=== PATIENT | male | born 1935 | race Caucasian/White ===

== ENCOUNTER 2018-03-20 06:25 | Inpatient (IN) | payer OTHER ==
[~2018-03-20] VITALS: Ht 177.8 cm; Wt 96.3 kg
[~2018-03-20 06:25] MED LIST: AMLODIPINE10 MG PO; ASPIR 8181 MG PO; BENAZEPRIL40 MG PO; ENDOCET 325 MG-1 TA1 PO; FLU VACCINE 0.0.5 ML IM; LABETALOL HCL300 M1 PO; LABETALOL HYDR200 MG PO
--- NOTE | 2018-03-20 06:46 | ED DYSPNEA/ASTHMA COMPLAINT ---
History of Present Illness General Chief Complaint: Dyspnea (COPD, CHF, Other) Stated Complaint: SOB Source: patient, old records, EMS Exam Limitations: no limitations Vital Signs & Intake/Output Vital Signs & Intake/Output Vital Signs Date Time Temp Pulse Resp B/P B/P Pulse O2 O2 Flow FiO2 Mean Ox Delivery Rate 03/20 1100 97.8 74 16 188/68 95 Nasal 4.0L Cannula 03/20 0949 96.1 66 20 160/80 98 Nasal 4.0L Cannula 03/20 0855 162/88 03/20 0738 96.5 83 20 180/80 96 Nasal 4.0L Cannula 03/20 0655 73 18 169/83 96 Nasal 2.0L Cannula 03/20 0643 98 Nasal 5.0L Cannula 03/20 0632 95 Nasal 5.0L Cannula 03/20 0631 18 95 Nasal 5.0L Cannula 03/20 0630 96.3 83 18 178/98 87 Room Air Allergies Coded Allergies: No Known Allergies (02/20/18) Triage Note: PT BIBA FROM HOME C/O SOB X1 DAY. PT STATES HE FELT SOB UPON EXCERTION FOR THE PAST FEW DAYS, PT WENT TO PCP YESTERDAY WHO GAVE PT PROMETHAZINE AND PREDNISONE. PT MEDCIATED WITHOUT RELIEF. PT BASELINE RA, A&0X3. PT ARRIVED 87% ON RA. PLACED ON 2L NC. PT CHANGED INTO GOWN, PLACED ON MONITOR, AWAITING PROVIDER EVAL. PT ARRIVED WITH [facility] #20. Triage Nurses Notes Reviewed? yes Onset: Last week Duration: day(s):, constant, continues in ED Timing: recent history Severity: severe Activities at Onset: rest Prior Episodes/Possible Cause: unknown cause Modifying Factors: Improves With: movement. Worsens With: rest. Associated Symptoms: cough, edema, weakness HPI: 1 week prior to admission patient complains of increasing dyspnea on exertion with cough. He was seen and prescribed cough syrup and prednisone. He also repeats increasing lower extremity swelling. Prior to admission he awoke with severe shortness of breath continued cough and weakness. He denies fever chills nausea vomiting diarrhea abdominal pain chest pain headache dysuria rash bleeding. (Emily VAN,Edgar) Reconcile Medications Labetalol HCl 300 MG TABLET 1 TAB PO BID high blood pressure Prednisone 10 MG TABLET 4 TAB PO DAILY STEROID (Reported) Promethazine/Dextromethorphan (Promethazine-Dm Syrup) 6.25 MG-15 MG/5 ML SYRUP 1 TSP PO 4XDP PRN COUGH (Reported) (Sebas VAN,Angel Burgos) Past History Travel History Traveled to [place] past 21 day No Medical History Any Pertinent Medical History? 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 . BROTHER ([place] at age of 82 years). Hx Contributory? No (Edgar Diaz MD) Review of Systems Review of Systems Constitutional: Reports: see HPI, weakness. EENTM: Reports: no symptoms. Respiratory: Reports: see HPI, cough, short of breath. Cardiovascular: Reports: see HPI, edema. GI: Reports: no symptoms. Genitourinary: Reports: no symptoms. Musculoskeletal: Reports: no symptoms. Skin: Reports: no symptoms. Neurological/Psychological: Reports: no symptoms. Hematologic/Endocrine: Reports: no symptoms. Immunologic/Allergic: Reports: no symptoms. All Other Systems: Reviewed and Negative (Edgar Diaz MD) Physical Exam Physical Exam General Appearance: well developed/nourished, alert, awake, moderate distress, obese Head: atraumatic, normal appearance Eyes: Bilateral: normal appearance, PERRL, EOMI. Ears, Nose, Throat: normal pharynx, normal ENT inspection Neck: normal inspection, supple, full range of motion, no midline tenderness Respiratory: chest non-tender, decreased breath sounds, crackles, wheezing, respiratory distress Cardiovascular: regular rate/rhythm, normal peripheral pulses, norml femoral pulses equa Peripheral Pulses: 4+ carotid (R), 4+ carotid (L) Gastrointestinal: normal bowel sounds, soft, non-tender, no organomegaly Extremities: normal capillary refill, pedal edema, no ligament instability Neurologic/Psych: no motor/sensory deficits, awake, alert, oriented x 3, normal mood/affect Skin: intact, normal color, warm/dry Lymphatic: no anterior cervical ariadna Core Measures ACS in differential dx? No CVA/TIA Diagnosis No Sepsis Present: No Sepsis Focused Exam Completed? No (Edgar Diaz MD) Progress Differential Diagnosis: asthma, bronchitis, CHF, COPD, pneumonia Plan of Care: Orders Procedure Date/time Status LIPID PANEL 03/21 06 Active GLYCOSYLATED HGB 03/21 0600 Active CBC WITHOUT DIFFERENTIAL 03/21 0600 Active BASIC ELECTROLYTES PLUS BUN&CR 03/21 0600 Active Heart Healthy Diet 03/20 L Active TROPONIN LEVEL 03/20 1900 Active EKG 03/20 1900 Active TROPONIN LEVEL 03/20 1300 Active EKG 03/20 1300 Active EKG 03/20 1200 Active Pathway - chart 03/20 1000 Active House Staff 03/20 1000 Active ECHOCARDIOGRAM 03/20 1000 Active Weight 03/20 0950 Active Vital Signs 03/20 0950 Active Teach/Educate 03/20 0950 Active Pain Treatment and Response 03/20 0950 Active Nutritional Intake, Monitor 03/20 0950 Active Isolation 03/20 0950 Active Intake & Output 03/20 0950 Active Patient Care Conference 03/20 0950 Active Activity/Ambulation 03/20 0950 Active Patient Data 03/20 0843 Active ED Holding Orders 03/20 0819 Active Admit to inpatient 03/20 0819 Active Vital Signs 03/20 0819 Active Code Status 03/20 0819 Active TROPONIN LEVEL 03/20 0643 Complete MAGNESIUM 03/20 0643 Complete COMPREHENSIVE METABOLIC PANEL 03/20 0643 Complete CBC WITHOUT DIFFERENTIAL 03/20 0643 Complete B-TYPE NATRIURETIC PEP (BNP) 03/20 0643 Complete EKG 03/20 0632 Active Intake & Output 03/20 0629 Active Weight 03/20 UNK Active Intake & Output 03/20 UNK Active Jefferson, Insertion/Removal/Asses 03/20 UNK Active Current Medications Sig/Kelvin Start time Last Medication Dose Stop Time Status Admin Furosemide 60 MG DAILY 03/21 0900 AC (Lasix) Furosemide 40 MG 7:30 AM, & 4:30 PM 03/21 0730 CAN (Lasix) Atorvastatin Calcium 80 MG 1700 03/20 1700 AC (Lipitor) Heparin Sodium 5,000 UNIT Q8 03/20 1400 AC (Porcine) Amlodipine Besylate 5 MG DAILY 03/20 1157 AC (Norvasc) Laboratory Tests 03/20/18 0644: Anion Gap 12, Estimated GFR 23 L, BUN/Creatinine Ratio 17.8, Glucose 126 H, Calcium 9.4, Magnesium 2.2, Total Bilirubin 0.6, AST 15 L, ALT 30, Alkaline Phosphatase 80, Troponin I 0.15 *H, Ypc-A-Phrfcamjlgd Pept 7530 H, Total Protein 6.1 L, Albumin 3.5, Globulin 2.6, Albumin/Globulin Ratio 1.3, CBC w Diff NO MAN DIFF REQ, RBC 4.26 L, MCV 86.3, MCH 28.8, MCHC 33.4, RDW 14.7 H, MPV 8.2, Gran % 86.3 H, Lymphocytes % 9.7 L, Monocytes % 4.0, Eosinophils % 0, Basophils % 0, Absolute Granulocytes 4.4, Absolute Lymphocytes 0.5 L, Absolute Monocytes 0.2, Absolute Eosinophils 0, Absolute Basophils 0 Diagnostic Imaging: Viewed by Me: Radiology Read. Discussed w/RAD: Radiology Read. Initial ED EKG: normal intervals, normal p-waves, normal sinus rhythm, LBBB, nonspecific ST T wave chg Prior EKG: unchanged Rhythm Strip: normal sinus rhythm Hand-Off Endorsed To: Angel Mullen MD Endorsed Time: 0700 Pending: labs, other, Xray (Emily VAN,Edgar) CXR Impression: PATIENT: KIM DELEON PRESENT AGE: 82 PATIENT ACCOUNT NO: [id number] : 33 LOCATION: [facility] ORDERING PHYSICIAN: Edgar Diaz MD SERVICE DATE: 03/20/18 EXAM TYPE: RAD - XRY-PORTABLE CHEST XRAY EXAMINATION: XR PORTABLE CHEST CLINICAL INFORMATION: CHF. Rales. Shortness of breath. COMPARISON: Chest x-ray July 29, 2014 TECHNIQUE: Portable frontal view of the chest was obtained. 6:40 AM FINDINGS: Lung volume is low. There is pulmonary vascular congestion with increased interstitial lung markings , congestive heart failure. Haziness of both lung bases due to pleural effusions and probable bibasilar atelectasis. The basilar density is greater on the left than the right. There is no pneumothorax. IMPRESSION: Congestive heart failure. DICTATED BY: Daryl Leigh MD DATE/TIME DICTATED:03/20/18701 LEAD SPRINKLER :YULISA DATE/TIME TRANSCRIBED:03/20/18701 CONFIDENTIAL, DO NOT COPY WITHOUT APPROPRIATE AUTHORIZATION. <Electronically signed in Other Vendor System> SIGNED BY: Daryl Leigh MD 03/20/18 0706 Comments: Patient has been updated on x-ray and lab results. Questions have been answered. Patient will require admission to the hospital. Patient states that he does not see a panman. Patient has been seen once by Dr. Serna a few years ago but the patient does not remember seeing him and states that he only follows up with Dr. hurst. (Angel Mullen MD) Departure Departure Disposition: STILL A PATIENT Condition: Stable Referrals: Kelly VAN,Kendra (PCP/Family) Departure Forms: Customer Survey General Discharge Information (Edgar Diaz MD) Departure Clinical Impression Primary Impression: CHF (congestive heart failure) Secondary Impressions: ARF (acute renal failure), Elevated troponin Admission Note Spoke With: Agustin Julian MD Documentation of Exam: Documentation of any treatments & extenuating circumstances including Concerns Regarding Discharge (functional status, medication knowledge or non-compliance, living conditions, etc.) that warrant an admission rather than observation: [ Telemetry admission, serial enzymes, IV diuresis, cardiology consultation, repeat echocardiogram] (Angel Mullen MD) Critical Care Note Critical Care Note Critical Care Time: non-applicable (Edgar Diaz MD) Critical Care Note Critical Care Time: mins: (90 MIN) (Angel Mullen MD)
--- NOTE | 2018-03-20 07:06 | RADIOLOGY REPORT ---
EXAMINATION: XR PORTABLE CHEST CLINICAL INFORMATION: CHF. Rales. Shortness of breath. COMPARISON: Chest x-ray July 29, 2014 TECHNIQUE: Portable frontal view of the chest was obtained. 6:40 AM FINDINGS: Lung volume is low. There is pulmonary vascular congestion with increased interstitial lung markings, congestive heart failure. Haziness of both lung bases due to pleural effusions and probable bibasilar atelectasis. The basilar density is greater on the left than the right. There is no pneumothorax. IMPRESSION: Congestive heart failure.
[2018-03-20 07:12] LABS: ABSOLUTE BASOPHIL COUNT 0 /CUMM (0.0-0.2); ABSOLUTE EOSINOPHIL COUNT 0 /CUMM (0.0-0.7); ABSOLUTE GRANULOCYTE CT 4.4 /CUMM (1.4-6.5); ABSOLUTE LYMPH COUNT 0.5 /CUMM (1.2-3.4); ABSOLUTE MONOCYTE COUNT 0.2 /CUMM (0.10-0.60); BASOPHIL % 0 % (0.0-2.0); EOSINOPHIL % 0 % (0-5); HEMATOCRIT 36.8 % (42-52); MEAN CORPUSCULAR HGB 28.8 PG (27.0-31.0); MEAN CORPUSCULAR HGB CONC 33.4 G/DL (33.0-37.0); MEAN CORPUSCULAR VOLUME 86.3 FL (80.0-94.0); MEAN PLATELET VOLUME 8.2 FL (7.4-10.4); PLATELET COUNT 245 /CUMM (130-400); RBC DISTRIBUTION WIDTH 14.7 % (11.5-14.5); RED BLOOD CELL CT 4.26 /CUMM (4.70-6.10); WHITE BLOOD CELL COUNT 5.1 /CUMM (4.8-10.8)
[2018-03-20 07:29] LABS: GRANULOCYTE % 86.3 % (42.2-75.2)
[2018-03-20] MEDS ORDERED: PREDNISONE10 M2 PO (08:58)
[2018-03-20] MEDS ORDERED: PROMETHAZINE-D118 ML PO (09:00)
--- NOTE | 2018-03-20 10:03 | History & Physical ---
Anmol Wilkins 03/20/18 0938: General Information and HPI MD Statement: I have seen and personally examined KIM DELEON and documented this H&P. The patient is a 82 year old M who presented with a patient stated chief complaint of dyspnea]. Source of Information: patient, old records Exam Limitations: no limitations History of Present Illness: 82 year old gentleman with a PMH of HTN presents to the ER with complaints of progressive dyspnea. He states that over the last week he has felt more winded with his daily activities. He is normally active at baseline and independent completing all of his ADLs. He states that this he states that yesterday morning, his dyspnea significantly worsened and did not improve. He called his primary care physician who prescribed a dose of prednisone and cough syrup for him. His dyspnea has not improved, which prompted him to come to the emergency department. In addition to his dyspnea, he denies any chest pain, palpitations, lower extremity edema. He admits to a recent cough however denies any fever, chills, sick contacts. He denies a history of any tobacco use, or alcohol use. Vitals on admission, blood pressure 178/98 saturating 87% on room air. Temperature 96.3, pulse rate 83, respiratory rate 18. He is currently requiring 4 L of oxygen, saturating in the high 90s. Labs were significant for increased BUNs/creatinine 48/2.7, increase troponin 0.15, and proBNP 7530. Chest x-ray independently reviewed, compared to July 2014 shows increased pulmonary vascularity with bilateral pleural effusions. ECG shows SR with LISA at a rate of 80, LAD approx -45 degrees, IVCD with QRS 140ms approx, LAFB, LVH by voltage criteria (aVL) with strain pattern. 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 . BROTHER (ID at age of 82 years). Review of Systems Review of Systems Constitutional: Reports: see HPI. Exam & Diagnostic Data Last 24 Hrs of Vital Signs/I&O Vital Signs Date Time Temp Pulse Resp B/P B/P Pulse O2 O2 Flow FiO2 Mean Ox Delivery Rate 03/20 0949 96.1 66 20 160/80 98 Nasal 4.0L Cannula 03/20 0855 162/88 03/20 0738 96.5 83 20 180/80 96 Nasal 4.0L Cannula 03/20 0655 73 18 169/83 96 Nasal 2.0L Cannula 03/20 0643 98 Nasal 5.0L Cannula 03/20 0632 95 Nasal 5.0L Cannula 03/20 0631 18 95 Nasal 5.0L Cannula 03/20 0630 96.3 83 18 178/98 87 Room Air Intake & Output 03/20 1600 03/20 0800 03/20 0000 Intake Total Output Total 300 Balance -300 Output, Urine 300 Patient 97.522 kg Weight Weight Reported by Patient Measurement Method Physical Exam General Appearance Alert, Oriented X3, Mild Distress Skin No Significant Lesion Skin Temp/Moisture Exam: Warm/Dry HEENT Atraumatic, PERRLA Neck JVD noted to the angle of the mandible when laying at 45 degrees Cardiovascular S1S2, regular rhythm, 3/6 systolic murmur at the base, loudest at the RUSB, with faint carotid radiation , Diastolic murmur also appreciated, louder at the base. No axillary radiation. Lungs very poor entry at the bases with no air entry appreciated. Rales in the mid bases BL. Abdomen Normal Bowel Sounds, Soft, No Tenderness Extremities NO significant LE edema. Last 24 Hrs of Labs/Gabriele: Laboratory Tests 03/20/18 0644: Anion Gap 12, Estimated GFR 23 L, BUN/Creatinine Ratio 17.8, Glucose 126 H, Calcium 9.4, Magnesium 2.2, Total Bilirubin 0.6, AST 15 L, ALT 30, Alkaline Phosphatase 80, Troponin I 0.15 *H, Gmb-V-Kmckljimivy Pept 7530 H, Total Protein 6.1 L, Albumin 3.5, Globulin 2.6, Albumin/Globulin Ratio 1.3, CBC w Diff NO MAN DIFF REQ, RBC 4.26 L, MCV 86.3, MCH 28.8, MCHC 33.4, RDW 14.7 H, MPV 8.2, Gran % 86.3 H, Lymphocytes % 9.7 L, Monocytes % 4.0, Eosinophils % 0, Basophils % 0, Absolute Granulocytes 4.4, Absolute Lymphocytes 0.5 L, Absolute Monocytes 0.2, Absolute Eosinophils 0, Absolute Basophils 0 Diagnostic Data EKG Results ECG shows SR with LISA at a rate of 80, LAD approx -45 degrees, IVCD with QRS 140ms approx, LAFB, LVH by voltage criteria (aVL) with strain pattern. No new, worsening ST elevations CXR Results COMPARISON: Chest x-ray July 29, 2014 TECHNIQUE: Portable frontal view of the chest was obtained. 6:40 AM FINDINGS: Lung volume is low. There is pulmonary vascular congestion with increased interstitial lung markings, congestive heart failure. Haziness of both lung bases due to pleural effusions and probable bibasilar atelectasis. The basilar density is greater on the left than the right. There is no pneumothorax. IMPRESSION: Congestive heart failure. Assessment/Plan Assessment: 82 year old gentleman with a PMH of HTN presents to the ER with complaints of progressive dyspnea, found to be have pulmonary edema with elevated trop and BNP. With his evidence of elevated troponin, CHF and pulmonary edema, I believe that he has a component of acute decompensated heart failure, which is new [no previous cardiogram]. Etiology of his heart failure/pulmonary edema may be secondary to hypertension, or acute coronary syndrome, although no gross evidence of transmural infarction was noted on ECG. Problem list * Clinical acute decompensated congestive heart failure * Hypertension * Acute on chronic kidney injury Plan * We will admit him to the telemetry floor, and treat him for acute decompensated heart failure. * He does have acute on chronic kidney injury, I believe secondary to his heart failure. I believe this will respond well to diuresis. He was given a dose of Lasix 40 mg IV in the emergency department, diuresing 300 mL. Given his renal impairment, I believe he requires a higher dose of Lasix, we will consider 80 mg IV twice daily, with strict ins and outs as well as daily weights. * If he remains hypertensive, with little response to diuresis, and high oxygen requirements, consider vasodilator therapy with IV nitroglycerin drip, which will also decrease his afterload and improve his left ventricular end-diastolic pressure, hopefully improving cardiac output. * Also, if he continues to have high O2 requirements with poor response to diuretics, we will initiate NIPPV. * We will hold his beta jackie for now, although this should be restarted after his heart failure resolves. * Plan for echocardiogram to evaluate his wall motion and ejection fraction, as well as his diastolic murmur ?AR and systolic murmur, ?MR. * If he does have reduced ejection fraction, he will benefit from an ARNI. * He denied any chest pain, and although he does have elevated troponin, at this moment I do not feel that this is secondary to cardiac ischemia, but rather secondary to type II ID given increased oxygen requirements, as well as his kidney injury. We will not treat as non-ST elevation ID for now. Full code Heart healthy diet Heparin for DVT prophylaxis Pain pathway as ordered As Ranked By This Provider Problem List: 1. CHF (congestive heart failure) 2. ONEIDA (acute kidney injury) 3. Full code status Core Measures/Misc (07/14) Acute Coronary Syndrome ACS Diagnosis: Yes Congestive Heart Failure Congestive Heart Failure Diagnosis Yes No CALI/ARB d/t Renal Failure/Azotemia Cerebrovascular Accident CVA/TIA Diagnosis: No VTE (View Protocol) VTE Risk Factors Age>40 No Mechanical VTE Prophylaxis d/t Other No VTE Pharm Prophylaxis d/t NA PharmProphylax ordered Sepsis (View protocol) Sepsis Present: No If YES complete Sepsis Event Note If YES complete Sepsis Event Note Lea Riojas MD 03/20/18 1220: Core Measures/Misc (07/14) Sepsis (View protocol) If YES complete Sepsis Event Note If YES complete Sepsis Event Note Attending MD Review Statement Attending Statement Attending MD Statement: examined this patient, discuss w/resident/PA/BELT DRESSER, agreed w/resident/PA/BELT DRESSER, reviewed EMR data (avail) Attending Assessment/Plan: 82M PMH HTN presenting with acute onset of shortness of breath, found to be hypertensive with ONEIDA and pulmonary edema. Given Lasix in ED with mild improvement but only 300mL urine output. EKG NSR with IVCD and mildly elevated troponin. 1. Acute pulmonary edema 2. ONEIDA 3. Hypertensive emergency Plan - Admit to telemetry - Lasix IV - I/O, daily weights - If SOB can start BiPAP - Will discuss nitrate benefit with cardiology - Cardiology consult - Continue home medications - DVT PPx
[2018-03-20 11:00] VITALS: BP 188/68
--- NOTE | 2018-03-20 11:52 | Cons- Cardiology ---
General Information and HPI Consulting Request Date of Consult: 03/20/18 Requested By: Lea Riojas MD Reason for Consult: Heart failure History of Present Illness: The patient is an 82-year-old male with history of hypertension who presents with shortness of breath. He notes that for the past week he has had worsening shortness of breath which is increased by activity. The shortness of breath is moderate in severity. He does not recall having similar shortness of breath in the past no chest pain. No palpitations. No syncope. No diaphoresis. No nausea or vomiting. He was prescribed prednisone and cough syrup by his primary care physician for the shortness of breath with no improvement. He complains of a recent mild cough. No prior cardiac history. No history of tobacco or alcohol use. Shortness of breath is somewhat better than on presentation. He is currently requiring 4 L of oxygen, and saturating in the high 90s. Allergies/Medications Allergies: Coded Allergies: No Known Allergies (02/20/18) Home Med List: Labetalol HCl 300 MG TABLET 1 TAB PO BID high blood pressure Prednisone 10 MG TABLET 4 TAB PO DAILY STEROID (Reported) Promethazine/Dextromethorphan (Promethazine-Dm Syrup) 6.25 MG-15 MG/5 ML SYRUP 1 TSP PO 4XDP PRN COUGH (Reported) Current Medications: Current Medications Sig/Kelvin Start time Last Medication Dose Route Stop Time Status Admin Albuterol Sulfate 3 ML ONCE ONE 03/20 0645 DC 03/20 INH 03/20 0646 0643 Aspirin 0 .STK-MED ONE 03/20 0738 DC PO Aspirin 325 MG ONCE ONE 03/20 0730 DC 03/20 PO 03/20 0731 0739 Atorvastatin Calcium 80 MG 1700 03/20 1700 AC PO Furosemide 40 MG 7:30 AM, & 4:30 PM 03/21 0730 AC IV Furosemide 40 MG 7:30 AM, & 4:30 PM 03/20 1630 DC IV Furosemide 60 MG ONCE ONE 03/20 1045 DC 03/20 IV 03/20 1046 1137 Furosemide 0 .STK-MED ONE 03/20 0658 DC IV Furosemide 40 MG ONCE ONE 03/20 0645 DC 03/20 IV 03/20 0646 0655 Heparin Sodium 5,000 UNIT Q8 03/20 1400 AC (Porcine) SC Ipratropium [place] 2.5 ML ONCE ONE 03/20 0645 DC 03/20 INH 03/20 0646 0643 Review of Systems Review of Systems: No fever. No chills. No rash. No tremor. No melena. All other systems were reviewed, and were noted to be negative. Past History Travel History Traveled to [place] past 21 day No Medical History Cardiovascular: CHF, hypertension Respiratory: BLACK LUNG Musculoskeletal: PSORIASIS Blood Disorders: NONE Cancer(s): NONE COMMERCIAL [employer]/Reproductive: NONE Other Medical Hx: Syncope, Psoriasis Surgical History Surgical History: non-contributory Family History Relations & Conditions If Any: MOTHER ( probably from CHF?). . BROTHER ([place] at age of 82 years). Exam & Diagnostic Data Vital Signs and I&O Vital Signs Date Time Temp Pulse Resp B/P B/P Pulse O2 O2 Flow FiO2 Mean Ox Delivery Rate 03/20 1100 97.8 74 16 188/68 95 Nasal 4.0L Cannula 03/20 0949 96.1 66 20 160/80 98 Nasal 4.0L Cannula 03/20 0855 162/88 03/20 0738 96.5 83 20 180/80 96 Nasal 4.0L Cannula 03/20 0655 73 18 169/83 96 Nasal 2.0L Cannula 03/20 0643 98 Nasal 5.0L Cannula 03/20 0632 95 Nasal 5.0L Cannula 03/20 0631 18 95 Nasal 5.0L Cannula 03/20 0630 96.3 83 18 178/98 87 Room Air Intake & Output 03/20 1600 03/20 0800 03/20 0000 03/19 1600 03/19 0800 03/19 0000 Intake Total Output Total 300 Balance -300 Output, Urine 300 Patient 215 lb Weight Weight Reported by Patient Measurement Method Physical Exam: Gen: The patient is in no acute distress HEENT: Normal nose, ears, and oropharynx. Pupils equal bilaterally. Conjunctiva normal. Neck: Supple with no JVD, no masses, and no thyromegaly Lungs: Bilateral rales with normal respiratory effort Heart: S1, S2, 2 out of 6 systolic murmur. No peripheral edema, 2+ pulses in the lower extremities bilaterally Abdomen: Soft, nontender, no masses. No hepatomegaly. No splenomegaly Extremities: No clubbing or cyanosis. Normal muscle strength in the upper and lower extremities Skin: Normal skin turgor with no skin ulcers or lesions noted. Neuro: Cranial nerves intact. Sensation intact Psych: Alert and oriented x 3 with appropriate affect Labs/Gabriele Results: Laboratory Tests 03/20 0644 Chemistry Sodium (137 - 145 mmol/L) 147 H Potassium (3.5 - 5.1 mmol/L) 4.3 Chloride (98 - 107 mmol/L) 112 H Carbon Dioxide (22 - 30 mmol/L) 23 Anion Gap (5 - 16) 12 BUN (9 - 20 mg/dL) 48 H Creatinine (0.7 - 1.2 mg/dL) 2.7 H Estimated GFR (>60 ml/min) 23 L BUN/Creatinine Ratio (7 - 25 %) 17.8 Glucose (65 - 99 mg/dL) 126 H Calcium (8.4 - 10.2 mg/dL) 9.4 Magnesium (1.6 - 2.3 mg/dL) 2.2 Total Bilirubin (0.2 - 1.3 mg/dL) 0.6 AST (17 - 59 U/L) 15 L ALT (21 - 72 U/L) 30 Alkaline Phosphatase (< 127 U/L) 80 Troponin I (<0.11 ng/ml) 0.15 *H Ngs-[id number]-Vknleddhrxr Pept (<125 pg/mL) 7530 H Total Protein (6.3 - 8.2 g/dL) 6.1 L Albumin (3.5 - 5.0 g/dL) 3.5 Globulin (1.9 - 4.2 gm/dL) 2.6 Albumin/Globulin Ratio (1.1 - 2.2 %) 1.3 Hematology CBC w Diff NO MAN DIFF REQ WBC (4.8 - 10.8 /CUMM) 5.1 RBC (4.70 - 6.10 /CUMM) 4.26 L Hgb (14.0 - 18.0 G/DL) 12.3 L Hct (42 - 52 %) 36.8 L MCV (80.0 - 94.0 FL) 86.3 MCH (27.0 - 31.0 PG) 28.8 MCHC (33.0 - 37.0 G/DL) 33.4 RDW (11.5 - 14.5 %) 14.7 H Plt Count (130 - 400 /CUMM) 245 MPV (7.4 - 10.4 FL) 8.2 Gran % (42.2 - 75.2 %) 86.3 H Lymphocytes % (20.5 - 51.1 %) 9.7 L Monocytes % (1.7 - 9.3 %) 4.0 Eosinophils % (0 - 5 %) 0 Basophils % (0.0 - 2.0 %) 0 Absolute Granulocytes (1.4 - 6.5 /CUMM) 4.4 Absolute Lymphocytes (1.2 - 3.4 /CUMM) 0.5 L Absolute Monocytes (0.10 - 0.60 /CUMM) 0.2 Absolute Eosinophils (0.0 - 0.7 /CUMM) 0 Absolute Basophils (0.0 - 0.2 /CUMM) 0 Diagnostic Data EKG Results EKG tracing is independently reviewed, and reveals normal sinus rhythm at 75, left bundle branch block, left atrial abnormality CXR Results Lung volume is low. There is pulmonary vascular congestion with increased interstitial lung markings, congestive heart failure. Haziness of both lung bases due to pleural effusions and probable bibasilar atelectasis. The basilar density is greater on the left than the right. There is no pneumothorax. Assessment/Plan Assessment/Plan The patient is an 82-year-old male with history of hypertension presenting with shortness of breath and evidence of congestive heart failure. His blood pressure is uncontrolled. He is noted to have acute on chronic renal insufficiency with creatinine of 2.7 Plan: * Lasix 60 mg IV every 24 hours * Echocardiogram * Monitor input and output with daily weights * Start amlodipine 5 mg p.o. daily for blood pressure control Consult Acknowledgment - Thank you for your consult request.
[2018-03-20 15:21] VITALS: BP 170/84
[2018-03-20 17:10] VITALS: BP 164/70
[2018-03-20 21:10] VITALS: BP 160/80
[2018-03-20 22:33] VITALS: BP 160/80
[2018-03-21 06:31] VITALS: BP 150/70
--- NOTE | 2018-03-21 07:29 | PN- Housestaff ---
Geoffrey VAN,[facility] 03/21/18 0728: Subjective Follow-up For: Acute decompensated congestive heart failure Hypertension Acute on chronic ONEIDA Type 2 NM Tele-Events Since Last Visit: Normal sinus rhythm with BBB Heart rate 62-70 Review of Systems Constitutional: Reports: no symptoms. EENTM: Reports: no symptoms. Cardiovascular: Reports: no symptoms. Respiratory: Reports: no symptoms. Gastrointestinal: Reports: no symptoms. Genitourinary: Reports: no symptoms. Musculoskeletal: Reports: joint pain. Skin: Reports: no symptoms. Neurological/Psychological: Reports: no symptoms. Hematologic/Endocrine: Reports: no symptoms. Immunologic/Allergic: Reports: no symptoms. Objective Last 24 Hrs of Vital Signs/I&O Vital Signs Date Time Temp Pulse Resp B/P B/P Pulse O2 O2 Flow FiO2 Mean Ox Delivery Rate 03/21 1400 97.9 68 20 132/74 97 Nasal 3.0L Cannula 03/21 0910 70 158/74 03/21 0800 92 Nasal 3.0L Cannula 03/21 0631 97.7 64 20 150/70 96 Nasal Cannula 03/21 0000 Nasal 2.0L Cannula 03/20 2233 98.1 77 18 160/80 96 Nasal Cannula 03/20 2110 160/80 03/20 1710 164/70 Intake & Output 03/21 1600 03/21 0800 03/21 0000 Intake Total 750 120 250 Output Total 2100 575 1850 Balance -1350 -455 -1600 Intake, IV 30 Intake, Oral 720 120 250 Number 0 Bowel Movements Output, Urine 2100 575 1850 Patient 213 lb Weight Physical Exam General Appearance: Alert, Oriented X3, Cooperative Skin: No Rashes, No Breakdown Cardiovascular: Regular Rate, Normal S1, Normal S2 Lungs: Normal Air Movement, Rales bilaterally Abdomen: Normal Bowel Sounds, Soft, No Tenderness Extremities: No Clubbing, No Cyanosis, No Edema Current Medications: Current Medications Sig/Kelvin Start time Last Medication Dose Route Stop Time Status Admin Amlodipine Besylate 5 MG DAILY 03/20 1157 AC 03/21 PO 0910 Aspirin 81 MG DAILY 03/22 0900 AC PO Aspirin 325 MG ONCE ONE 03/21 1400 DC PO 03/21 1401 Atorvastatin Calcium 80 MG 1700 03/20 1700 AC 03/20 PO 1708 Dipyridamole 55 MG 1100 03/25 1100 AC Dextrose/Water 29 ML IV 03/25 1103 Furosemide 60 MG DAILY 03/21 0900 AC 03/21 IV 0910 Heparin Sodium 5,000 UNIT Q8 03/20 1400 AC 03/21 (Porcine) SC 1347 Metoprolol Tartrate 25 MG BID 03/21 1402 AC PO Patient Medication 1 ED ONE ONE 03/21 1430 DC Teaching ED 03/21 1431 Last 24 Hrs of Lab/Gabriele Results Last 24 Hrs of Labs/Mics: Laboratory Tests 03/21/18 0940: Troponin I 1.88 *H 03/21/18 0639: Anion Gap 10, Estimated GFR 26 L, BUN/Creatinine Ratio 20.8, Hemoglobin A1c 5.2 , Triglycerides 95, Cholesterol 121, LDL Cholesterol, Calc 68, HDL Cholesterol 34 L, Cholesterol/HDL Ratio 4, CBC w Diff NO MAN DIFF REQ, RBC 4.40 L, MCV 87.2, MCH 29.0, MCHC 33.3, RDW 16.0 H, MPV 8.7, Gran % 79.7 H, Lymphocytes % 12.4 L, Monocytes % 7.1, Eosinophils % 0.5, Basophils % 0.3, Absolute Granulocytes 5.7, Absolute Lymphocytes 0.9 L, Absolute Monocytes 0.5, Absolute Eosinophils 0, Absolute Basophils 0 03/21/18 0140: Troponin I 2.02 *H 03/20/18 1905: Troponin I 1.30 *H Assessment/Plan Assessment: 82 year old gentleman with a PMH of HTN presents to the ER with complaints of progressive dyspnea, found to be have pulmonary edema with elevated trop and BNP. Problem list * Acute decompensated congestive heart failure * Hypertension * Acute on chronic kidney injury Plan * Continue telemetry monitoring. * Continue IV lasix 60mg daily. * Strict I and O and daily weights. * Appreciate cardio recommendations. * Elevated trops yessenia from T2MI in the setting of acute CHF and acute kidney injury but would like to pursue a stress test to r/o ischemia. Also start him on aspirin and metoprolol. * ONEIDA yessenia from heart failure, continue to monitor renal function. . * Echocardiogram pending. * BP well controlled with Amlodipine, will continue. D/C labetolol. Full code Heart healthy diet Heparin for DVT prophylaxis Problem List: 1. CHF (congestive heart failure) 2. Hypertension 3. Elevated troponin Pain Ratin Pain Location: Knee Pain Goal: Remain pain free Pain Plan: Pain Pathway Tomorrow's Labs & Rationales: BEP(on Lasix) Shine [facility] 03/21/18 1308: Attending MD Review Statement Attending Statement Attending MD Statement: examined this patient, discuss w/resident/PA/MAILHOUSE OPERATOR, agreed w/resident/PA/MAILHOUSE OPERATOR, reviewed EMR data (avail) Attending Assessment/Plan: 82M PMH HTN presenting with acute onset of shortness of breath, found to be hypertensive with ONEIDA and pulmonary edema. Given Lasix in ED with mild improvement but only 300mL urine output. EKG NSR with IVCD and mildly elevated troponin. Overnight diuresed net negative 2800mL with improvement in breathing. Witnessed him walking with PT and he appeared unsteady and weak. Patient says he is below his baseline. Lung sounds improved. Troponin peaked at 2.02. No telemetry events. 1. Acute pulmonary edema 2. ONEIDA 3. Hypertensive emergency 4. Type 2 myocardial infarction Plan - Continue on telemetry - Lasix IV 60mg daily - Full dose ASA and Metoprolol 25mg BID per cardiology - Stress test Saturday or Saturday depending on holiday schedule - I/O, daily weights - Cardiology consult - Continue home medications - DVT PPx events. 1. Acute pulmonary edema 2. ONEIDA 3. Hypertensive emergency 4. Type 2 myocardial infarction Plan - Continue on telemetry - Lasix IV 60mg daily - Full dose ASA and Metoprolol 25mg BID per cardiology - Stress test Saturday or Saturday depending on holiday schedule - I/O, daily weights - Cardiology consult - Continue home medications - DVT PPx
[2018-03-21 08:03] LABS: ABSOLUTE BASOPHIL COUNT 0 /CUMM (0.0-0.2); ABSOLUTE EOSINOPHIL COUNT 0 /CUMM (0.0-0.7); ABSOLUTE GRANULOCYTE CT 5.7 /CUMM (1.4-6.5); ABSOLUTE LYMPH COUNT 0.9 /CUMM (1.2-3.4); ABSOLUTE MONOCYTE COUNT 0.5 /CUMM (0.10-0.60); BASOPHIL % 0.3 % (0.0-2.0); EOSINOPHIL % 0.5 % (0-5); GRANULOCYTE % 79.7 % (42.2-75.2); HEMATOCRIT 38.4 % (42-52); MEAN CORPUSCULAR HGB CONC 33.3 G/DL (33.0-37.0); MEAN CORPUSCULAR VOLUME 87.2 FL (80.0-94.0); MEAN PLATELET VOLUME 8.7 FL (7.4-10.4); PLATELET COUNT 246 /CUMM (130-400); WHITE BLOOD CELL COUNT 7.1 /CUMM (4.8-10.8)
--- NOTE | 2018-03-21 12:12 | PN- Cardiology ---
Subjective Subjective: The patient reports that he is feeling well. No chest pain. Shortness of breath is improving. No diaphoresis. No palpitations. Objective Vital Signs and I&Os Vital Signs Date Time Temp Pulse Resp B/P B/P Pulse O2 O2 Flow FiO2 Mean Ox Delivery Rate 03/21 0910 70 158/74 03/21 0800 92 Nasal 3.0L Cannula 03/21 0631 97.7 64 20 150/70 96 Nasal Cannula 03/21 0000 Nasal 2.0L Cannula 03/20 2233 98.1 77 18 160/80 96 Nasal Cannula 03/20 2110 160/80 03/20 1710 164/70 03/20 1600 Nasal 3.0L Cannula 03/20 1521 97.8 80 18 170/84 95 Nasal Cannula 03/20 1437 96 Nasal 4.0L Cannula 03/20 1433 80 170/84 Intake & Output 03/21 1600 03/21 0800 03/21 0000 03/20 1600 03/20 0800 03/20 0000 Intake Total 120 250 300 Output Total 575 1850 1500 Balance -455 -1600 -1200 Intake, Oral 120 250 300 Number 0 0 Bowel Movements Output, Urine 575 1850 1500 Patient 213 lb 219 lb 215 lb Weight Weight Bed scale Reported by Patient Measurement Method Physical Exam: Gen: The patient is in no acute distress HEENT: Normal nose, ears, and oropharynx. Pupils equal bilaterally. Conjunctiva normal. Neck: Supple with no JVD, no masses, and no thyromegaly Lungs: Bilateral rales with normal respiratory effort Heart: S1, S2, 2/6 systolic murmur. No peripheral edema, 2+ pulses in the lower extremities bilaterally Abdomen: Soft, nontender, no masses. No hepatomegaly. No splenomegaly Extremities: No clubbing or cyanosis. Normal muscle strength in the upper and lower extremities Skin: Normal skin turgor with no skin ulcers or lesions noted. Neuro: Cranial nerves intact. Sensation intact Psych: Alert and oriented x 3 with appropriate affect Current Medications: Current Medications Sig/Kelvin Start time Last Medication Dose Route Stop Time Status Admin Amlodipine Besylate 5 MG DAILY 03/20 1157 AC 03/21 PO 0910 Atorvastatin Calcium 80 MG 1700 03/20 1700 AC 03/20 PO 1708 Furosemide 60 MG DAILY 03/21 0900 AC 03/21 IV 0910 Furosemide 40 MG 7:30 AM, & 4:30 PM 03/21 0730 CAN IV Heparin Sodium 5,000 UNIT Q8 03/20 1400 AC 03/21 (Porcine) CO 0628 Patient Medication 1 ED ONE ONE 03/20 1545 [facility] ED 03/20 1546 Results Last 48 Hrs of Labs/Mics: Laboratory Tests 03/21/18 0940: Troponin I 1.88 *H 03/21/18 0639: Anion Gap 10, Estimated GFR 26 L, BUN/Creatinine Ratio 20.8, Hemoglobin A1c 5.2 , Triglycerides 95, Cholesterol 121, LDL Cholesterol, Calc 68, HDL Cholesterol 34 L, Cholesterol/HDL Ratio 4, CBC w Diff NO MAN DIFF REQ, RBC 4.40 L, MCV 87.2, MCH 29.0, MCHC 33.3, RDW 16.0 H, MPV 8.7, Gran % 79.7 H, Lymphocytes % 12.4 L, Monocytes % 7.1, Eosinophils % 0.5, Basophils % 0.3, Absolute Granulocytes 5.7, Absolute Lymphocytes 0.9 L, Absolute Monocytes 0.5, Absolute Eosinophils 0, Absolute Basophils 0 03/21/18 0140: Troponin I 2.02 *H 03/20/18 1905: Troponin I 1.30 *H 03/20/18 1300: Troponin I 0.56 *H 03/20/18 0644: Anion Gap 12, Estimated GFR 23 L, BUN/Creatinine Ratio 17.8, Glucose 126 H, Calcium 9.4, Magnesium 2.2, Total Bilirubin 0.6, AST 15 L, ALT 30, Alkaline Phosphatase 80, Troponin I 0.15 *H, Fnl-O-Neqosvnmkxo Pept 7530 H, Total Protein 6.1 L, Albumin 3.5, Globulin 2.6, Albumin/Globulin Ratio 1.3, CBC w Diff NO MAN DIFF REQ, RBC 4.26 L, MCV 86.3, MCH 28.8, MCHC 33.4, RDW 14.7 H, MPV 8.2, Gran % 86.3 H, Lymphocytes % 9.7 L, Monocytes % 4.0, Eosinophils % 0, Basophils % 0, Absolute Granulocytes 4.4, Absolute Lymphocytes 0.5 L, Absolute Monocytes 0.2, Absolute Eosinophils 0, Absolute Basophils 0 Assessment/Plan Assessment/Plan Assessment: 1. Hypertension 2. Acute heart failure, EF unknown 3. Acute on chronic kidney injury 4. Positive troponin, likely type II OK in the setting of acute CHF and acute kidney injury. The patient has had no chest pain. Plan: * Continue IV Lasix, consider changing to oral tomorrow if stable * Start aspirin 325 mg p.o. 1 followed by 81 mg daily given positive troponin * Start metoprolol 25 mg p.o. twice daily * Monitor input and output with daily weights * Check basic metabolic profile daily * The positive troponin likely represents a type II OK in the setting of acute CHF and acute kidney injury. We will hold off for now on cardiac catheterization given the elevated creatinine. I recommend Persantine sestamibi stress testing once stable to evaluate for ischemia. This will be ordered for Saturday * Echocardiogram pending Continue telemetry? Yes
[2018-03-21 14:00] VITALS: BP 132/74
--- NOTE | 2018-03-21 19:02 | ECHOCARDIOGRAM REPORT ---
KIM DELEON Age: 82 : 1935 Gender: M Exam Date: 03/20/2018 19:22 Exam Location: 1 [address] Ht (in): 70 Wt (lb): 215 BSA: 2.22 BP: 160 / 80 Ordering Physician: Anmol Wilkins MD Referring Physician: Anmol Wilkins MD Technologist: MAGGIE Room Number: 173 Indications: Rhythm: Sinus Technical Quality: Technically difficult study FINDINGS Left Ventricle Normal size left ventricle. Left ventricular systolic function is poorly visualized, but appears to be mildly decreased, with LVEF estimated at 45 to 50%. Mild global hypokinesis Right Ventricle Normal right ventricular size and function. Right Atrium Normal right atrial size. Left Atrium Normal left atrial size. Mitral Valve Mitral valve thickened. Mild mitral regurgitation. Aortic Valve Aortic valve thickened. Mild aortic stenosis. Mild aortic regurgitation. Tricuspid Valve Tricuspid valve not well visualized, grossly normal. Trace tricuspid regurgitation. Pulmonic Valve Pulmonic valve not well visualized, grossly normal. Pericardium No pericardial effusion. Great Vessels Normal size aortic root. CONCLUSIONS Normal size left ventricle. Left ventricular systolic function is poorly visualized but appears to be mildly decreased, with LVEF estimated at 45 to 50%. Mild mitral regurgitation. Mild aortic stenosis. Mild aortic regurgitation. Trace tricuspid regurgitation. Mild global hypokinesis. Technically difficult study. Jose West M.D. (Electronically Signed) Final Date: 21 Mar 2018 19:01 MEASUREMENTS (Male / Female) Normal Values 2D ECHO LV Diastolic Diameter PLAX 5.3 cm 4.2 - 5.9 / 3.9 - 5.3 cm LV Systolic Diameter PLAX 4.3 cm 2.1 - 4.0 cm LV Fractional Shortening PLAX 18.9 % 25 - 46 % LV Ejection Fraction 2D Teich 38.6 % IVS Diastolic Thickness 1.4 cm LVPW Diastolic Thickness 1.4 cm LV Relative Wall Thickness 0.5 LVOT Diameter 2.0 cm Aortic Root Diameter 2.7 cm LA Systolic Diameter LX 3.8 cm 3.0 - 4.0 / 2.7 - 3.8 cm LA Volume 127.0 cm 18 - 58 / 22 - 52 cm DOPPLER AV Peak Velocity 211.0 cm/s AV Peak Gradient 17.8 mmHg AV Mean Velocity 142.0 cm/s AV Mean Gradient 10.0 mmHg AV Velocity Time Integral 37.0 cm LVOT Peak Velocity 95.5 cm/s LVOT Peak Gradient 3.6 mmHg LVOT Mean Velocity 64.0 cm/s LVOT Mean Gradient 2.0 mmHg LVOT Velocity Time Integral 19.6 cm LVOT Stroke Volume 61.6 cm AV Area Cont Eq vti 1.7 cm AV Area Cont Eq pk 1.4 cm Mitral E Point Velocity 109.0 cm/s Mitral A Point Velocity 59.2 cm/s Mitral E to A Ratio 1.8 MV Deceleration Time 225.0 ms TV Peak Velocity 263.0 cm/s PV Peak Velocity 102.0 cm/s PV Peak Gradient 4.2 mmHg LV E' Lateral Velocity 9.8 cm/s Mitral E to LV E' Lateral Ratio 11.2 LV E' Septal Velocity 5.8 cm/s Mitral E to LV E' Septal Ratio 19.0
[2018-03-21 23:15] VITALS: BP 120/80
[2018-03-22 00:30] VITALS: BP 130/74
--- NOTE | 2018-03-22 01:22 | Event Note ---
Event Note Event Note: Situation: Was alerted by nursing staff that at approximately 2330 the patient converted to atrial flutter on the monitor. Background: Patient was admitted for decompensated heart failure, patient had no significant cardiac history previously, echo shows mildly reduced ejection fraction. AR: Patient was seen and examined at bedside. He is resting comfortably. He denied any chest pain, palpitations, chest discomfort, lightheadedness, and reported feeling overall much better than yesterday, and currently had no complaints. On exam patient was alert and awake, heart rate was approximately 130s however there was a pulse deficit and peripheral pulse was approximately 80s, her bibasilar crackles on pulmonary exam. A flutter was confirmed by EKG. 5 mg IV Lopressor was pushed at bedside, patient's heart rate decreased was averaging between 130s-140s prior to medication administration, afterwards 100-110s. Patient was observed after remaining in a flutter, decision was made to start IV heparin. Stool guaiac was negative, this plan was discussed with the nocturnal wrist Dr. Dao, and on- call adult psychiatrist, Dr. Red. Labs were checked, BP, Mg, thyroid function tests, troponin Troponin remains elevated but is trending down, thyroid function tests are within normal limits, magnesium was 1.8 and was repleted IV, renal function has remained stable We will continue to monitor
[2018-03-22 01:33] VITALS: BP 126/82
[2018-03-22 02:34] VITALS: BP 112/60
[2018-03-22 06:44] VITALS: BP 110/64
--- NOTE | 2018-03-22 09:02 | PN- Housestaff ---
Geoffrey VAN,[facility] 03/22/18 0901: Subjective Follow-up For: Acute decompensated congestive heart failure Hypertension Acute on chronic ONEIDA Type 2 DC New onset Atrial Flutter Tele-Events Since Last Visit: Atrial flutter Heart rate 112 to 160s Subjective: Patient resting comfortably in bed, denies any chest pain, palpitations, worsening shortness of breath or lower extremity edema. Review of Systems Constitutional: Reports: no symptoms. EENTM: Reports: no symptoms. Cardiovascular: Reports: no symptoms. Respiratory: Reports: no symptoms. Gastrointestinal: Reports: no symptoms. Genitourinary: Reports: no symptoms. Musculoskeletal: Reports: no symptoms. Skin: Reports: no symptoms. Neurological/Psychological: Reports: no symptoms. Hematologic/Endocrine: Reports: no symptoms. Immunologic/Allergic: Reports: no symptoms. Objective Last 24 Hrs of Vital Signs/I&O Vital Signs Date Time Temp Pulse Resp B/P B/P Pulse O2 O2 Flow FiO2 Mean Ox Delivery Rate 03/22 0800 97 Nasal 3.0L Cannula 03/22 0748 118 110/64 03/22 0748 118 110/64 03/22 0644 97.5 90 20 110/64 96 Nasal 3.0L Cannula 03/22 0234 68 112/60 03/22 0153 83 126/82 03/22 0133 98.4 87 20 126/82 97 Nasal 3.0L Cannula 03/22 0030 98.2 84 20 130/74 96 Nasal Cannula 03/22 0000 Nasal 3.0L Cannula 03/21 2315 98.5 66 20 120/80 98 Nasal Cannula 03/21 2124 68 132/74 03/21 1636 68 132/74 Intake & Output 03/22 1600 03/22 0800 03/22 0000 Intake Total 153 350 Output Total 650 2049 Balance -497 -1700 Intake, IV 153 Intake, Oral 350 Output, Urine 650 2049 Patient 212 lb Weight Weight Bed scale Measurement Method Physical Exam General Appearance: Alert, Oriented X3, Cooperative, No Acute Distress Skin: No Rashes, No Breakdown Cardiovascular: Normal S1, Normal S2, irregularly irregular Lungs: Normal Air Movement, crackles on lung bases Abdomen: Normal Bowel Sounds, Soft, No Tenderness Extremities: No Clubbing, No Cyanosis, No Edema Current Medications: Current Medications Sig/Kelvin Start time Last Medication Dose Route Stop Time Status Admin Amlodipine Besylate 5 MG DAILY 03/20 1157 AC 03/22 PO 0748 Aspirin 81 MG DAILY 03/22 0900 AC 03/22 PO 0748 Atorvastatin Calcium 80 MG 1700 03/20 1700 AC 03/21 PO 1635 Dipyridamole 55 MG 1100 03/25 1100 AC Dextrose/Water 29 ML IV 03/25 1103 Furosemide 60 MG DAILY 03/21 0900 AC 03/22 IV 0747 Heparin Sodium 25,000 UNIT .STK-MED ONE 03/22 0433 DC (Porcine) IV 03/22 0434 Heparin Sodium 5,000 UNIT Q8 03/20 1400 DC 03/21 (Porcine) SC 2123 Heparin Sodium/ 1 UNIT Q24H 03/22 0345 AC 03/22 Dextrose IV 0455 Dextrose/Water 500 ML Magnesium Sulfate 1 GM ONCE ONE 03/22 0300 DC 03/22 Dextrose/Water 100 ML IV 03/22 0659 0520 Metoprolol Tartrate 5 MG ONCE ONE 03/22 0145 DC 03/22 IV 03/22 0146 0153 Metoprolol Tartrate 25 MG BID 03/21 1402 AC 03/22 PO 0748 Patient Medication 1 ED ONE ONE 03/21 1430 AL Teaching ED 03/21 1431 Last 24 Hrs of Lab/Gabriele Results Last 24 Hrs of Labs/Mics: Laboratory Tests 03/22/18 1100: APTT 88 H 03/22/18 0710: Anion Gap 11, Estimated GFR 29 L, BUN/Creatinine Ratio 21.4 03/22/18 0150: Troponin I 1.85 *H 03/22/18 0150: Anion Gap 11, Estimated GFR 26 L, BUN/Creatinine Ratio 19.6, Magnesium 1.8, TSH 0.708, Free T4 1.16 Assessment/Plan Assessment: 82 year old gentleman with a PMH of HTN presents to the ER with complaints of progressive dyspnea, found to be have pulmonary edema with elevated trop and BNP. Problem list * Acute decompensated congestive heart failure * Hypertension * Acute on chronic kidney injury * New onset atrial flutter Plan * Continue telemetry monitoring. * Discontinue IV lasix 60mg daily. * Appreciate cardio recommendations. * Elevated trops yessenia from T2MI in the setting of acute CHF and acute kidney injury but would like to pursue a stress test to r/o ischemia. Also start him on aspirin and metoprolol. * Start Plavix 75 g daily. * ONEIDA likley from heart failure, improving . Continue to monitor renal function. * Echocardiogram shows ejection fraction of 45-50% with global hypokinesis. * Last night patient was given 1 dose of IV Lopressor for new onset atrial flutter with heart rate up to 160s. Heart rate currently controlled with metoprolol 25 mg twice a day. We will continue IV heparin drip. * Start amiodarone drip for chemical cardioversion. * BP well controlled with Amlodipine, will continue. D/C labetolol. Full code Heart healthy diet Heparin for DVT prophylaxis Problem List: 1. CHF (congestive heart failure) 2. Elevated troponin Pain Ratin Pain Location: NA Pain Goal: Remain pain free Pain Plan: Pain Pathway Tomorrow's Labs & Rationales: BEP(On Lasix) Lea Riojas MD 03/22/18 1902: Attending MD Review Statement Attending Statement Attending MD Statement: examined this patient, discuss w/resident/PA/[employer]SEM[employer]ER, agreed w/resident/PA/[employer]SEMBLER, reviewed EMR data (avail) Attending Assessment/Plan: 82M PMH HTN presenting with acute onset of shortness of breath, found to be hypertensive with ONEIDA and pulmonary edema. Given Lasix in ED with mild improvement but only 300mL urine output. EKG NSR with IVCD and mildly elevated troponin. Patient diuresed well, but overnight rapid new onset atrial fibrillation. He was transferred to the ICU and placed on an amiodarone drip. 1. Acute pulmonary edema 2. ONEIDA 3. Hypertensive emergency 4. Type 2 myocardial infarction 5. New onset atrial fibrillation Plan - Continue in ICU - Discontinue Lasix - Heparin drip - ASA, Plavix and Metoprolol 25mg BID per cardiology - Will likely require cath - I/O, daily weights - Cardiology consult - Continue home medications - DVT PPx
[2018-03-22 12:08] LABS: PTT 88 SEC (25-37)
--- NOTE | 2018-03-22 14:15 | PN- Cardiology ---
Subjective Subjective: * Breathing is improved. No palpitations. * Atrial fibrillation with controlled heart rate. * Normal LA size on echo without evidence of thrombus * creatinine 2.2 * cardiac enzymes coming down. Objective Vital Signs and I&Os Vital Signs Date Time Temp Pulse Resp B/P B/P Pulse O2 O2 Flow FiO2 Mean Ox Delivery Rate 03/22 0800 97 Nasal 3.0L Cannula 03/22 0748 118 110/64 03/22 0748 118 110/64 03/22 0644 97.5 90 20 110/64 96 Nasal 3.0L Cannula 03/22 0234 68 112/60 03/22 0153 83 126/82 03/22 0133 98.4 87 20 126/82 97 Nasal 3.0L Cannula 03/22 0030 98.2 84 20 130/74 96 Nasal Cannula 03/22 0000 Nasal 3.0L Cannula 03/21 2315 98.5 66 20 120/80 98 Nasal Cannula 03/21 2124 68 132/74 03/21 1636 68 132/74 Intake & Output 03/22 1600 03/22 0800 03/22 0000 03/21 1600 03/21 0800 03/21 0000 Intake Total 153 350 750 120 250 Output Total 650 0 2100 575 1850 Balance -497 -1700 -1350 -455 -1600 Intake, IV 153 30 Intake, Oral 350 720 120 250 Number 0 Bowel Movements Output, Urine 650 2049 2100 575 1850 Patient 212 lb 213 lb Weight Weight Bed scale Measurement Method Physical Exam: General: WD/WN male in NAD; alert and oriented x 3 Neck: no JVD Heart: irregularly irregular Lungs: clear bilaterally Extremities: no edema Assessment/Plan Assessment/Plan * This patient has newly onset atrial fibrillation. We will begin an Amiodarone drip to attempt chemical conversion into a sinus rhythm and to help control his heart rate. Continue his Metoprolol. Begin IV heparin. TFT's are WNL. * Recent NM. Begin aspirin 81mg daily, Plavix 75mg daily and IV heparin as above. Begin Lipitor 40mg daily. Begin NTG if chest discomfort. Would probably pursue a cardiac catheterization when creatinine improves to baseline although would have a low threshold for a cardiac cath if chest pain or ischemic ECG changes. He likely has significant coronary artery disease with decompensated CHF and elevated troponin due to atrial fibrillation with increased heart rate in the setting of CAD. These clinical findings are equivalent to a stress test which is not likely to give additional information. * Hold diuretics, ACEI or ARB's and follow renal function. Continue telemetry? Yes
[2018-03-22 16:00] VITALS: BP 116/60
[2018-03-22 23:32] LABS: PTT 108 SEC (25-37)
[2018-03-23] VITALS: BP 126/60
[2018-03-23 06:51] LABS: PTT > 120 SEC (25-37)
[2018-03-23 08:00] VITALS: BP 150/80
--- NOTE | 2018-03-23 09:22 | Cons- CRCU ---
Za Kyle 03/23/18 0921: General Information and HPI Consulting Request Date of Consult: 03/23/18 Requested By: Dr. Riojas Reason for Consult: New onset atrial flutter, rate controlled with amiodarone History of Present Illness: Mr. Young is a 82-year-old gentleman with past medical history of hypertension that presented to the ER with chief complain of dyspnea since one week prior to admission. At baseline, he was normally active and did all his activities independently. One day prior to admission his shortness of breath worsened, he called his primary care and received a dose of prednisone and cough syrup however he continued to have worsening shortness of breath and therefore presented to the emergency department on February. Vitals on admission were blood pressure of 178/98, saturating 87% on room air. He was afebrile, pulse of 83, respiratory rate of 18, he was saturating 95% with 4 L of oxygen. He had a BUN/creatinine of 48/2.7, ulcerative 0.15, proBNP was elevated at 7530. Chest x-ray showed increased pulmonary vascularity with bilateral effusions. EKG showed sinus rhythm with a rate of 80, left axis deviation, QRS of 140 ms, left anterior fascicular block, left ventricular hypertrophy, however no acute ST elevations or ST T wave changes were observed. He was initially admitted to telemetry floor for management of shortness of breath possibly secondary to congestive heart failure however he had a new onset atrial flutter with difficulty to control rate and therefore was transferred to ICU for them amiodarone drip. Allergies/Medications Allergies: Coded Allergies: No Known Allergies (02/20/18) Home Med List: Labetalol HCl 300 MG TABLET 1 TAB PO BID high blood pressure Prednisone 10 MG TABLET 4 TAB PO DAILY STEROID (Reported) Promethazine/Dextromethorphan (Promethazine-Dm Syrup) 6.25 MG-15 MG/5 ML SYRUP 1 TSP PO 4XDP PRN COUGH (Reported) Current Medications: Current Medications Sig/Kelvin Start time Last Medication Dose Route Stop Time Status Admin Amiodarone HCl 400 MG BID 03/23 2100 DC PO Amiodarone HCl 400 MG BID 03/23 1715 AC 03/23 PO 1720 Amiodarone HCl/ 360 MG Q12H 03/23 0930 DC 03/23 Dextrose IV 0941 N/A 1 UNIT Amiodarone HCl/ 360 MG Q12H 03/22 1430 DC 03/22 Dextrose IV 2133 N/A 1 UNIT Amlodipine Besylate 5 MG DAILY 03/20 1157 AC 03/23 PO 0924 Aspirin 81 MG DAILY 03/22 0900 AC 03/23 PO 0924 Atorvastatin Calcium 40 MG 1700 03/22 1700 AC 03/23 PO 1719 Clopidogrel Bisulfate 75 MG DAILY 03/22 1419 AC 03/23 PO 0925 Dipyridamole 55 MG 1100 03/25 1100 AC Dextrose/Water 29 ML IV 03/25 1103 Heparin Sodium/ 25,000 UNIT Q24H 03/23 1130 AC 03/23 Dextrose IV 1721 Dextrose/Water 500 ML Heparin Sodium/ 1 UNIT Q24H 03/22 0345 DC 03/23 Dextrose IV 0342 Dextrose/Water 500 ML Metoprolol Tartrate 25 MG BID 03/21 1402 AC 03/23 PO 0925 Review of Systems Review of Systems Constitutional: Reports: malaise, weakness. Denies: chills, diaphoresis, fever. EENTM: Reports: no symptoms. Cardiovascular: Reports: orthopena, palpitations, peripheral edema. Denies: chest pain, edema. Respiratory: Reports: cough, short of breath, wheezing. Denies: hemoptysis, orthopnea. GI: Denies: abdominal pain, bloating, constipation. Genitourinary: Denies: discharge, dysuria, frequency. Musculoskeletal: Denies: back pain, gout, joint pain. Skin: Reports: no symptoms. Neurological/Psychological: Reports: no symptoms. Hematologic/Endocrine: Reports: no symptoms. 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 . BROTHER ([place] at age of 82 years). Psychosocial History Where Do You Live? Home Services at Home: None Smoking Status: Never Smoked Functional Ability ADLs Independent: dressing, eating, toileting, bathing. Ambulation: independent IADLs Independent: shopping, housework, finances, food prep. ECHO Results (as available) Date of last Echo 03/20/18 EF% 50 Exam & Diagnostic Data Last 24 Hrs of Vital Signs/I&O Vital Signs Date Time Temp Pulse Resp B/P B/P Pulse O2 O2 Flow FiO2 Mean Ox Delivery Rate 03/23 1720 111 149/76 03/23 1600 96 Room Air 03/23 1600 97.9 100 21 138/80 96 Room Air 03/23 1200 96 Room Air 03/23 0941 105 145/73 03/23 0925 116 145/73 03/23 0924 108 145/73 03/23 0800 95 Room Air 03/23 0800 97.6 96 16 150/80 95 Room Air 03/23 0000 98.1 98 16 126/60 92 Room Air Room Air 03/23 0000 92 Room Air Room Air 03/22 2133 97 103/69 03/22 2021 110 120/62 03/22 2000 97 Nasal 2.0L Cannula Intake & Output 03/23 1600 03/23 0800 03/23 0000 Intake Total 706 224 611 Output Total 500 560 650 Balance 206 -336 -39 Intake, IV 226 224 411 Intake, Oral 480 0 200 Number 0 0 0 Bowel Movements Output, Urine 500 560 650 Patient 95.368 kg Weight Weight Bed scale Measurement Method Physical Exam General Appearance: well developed/nourished Head: atraumatic, normal appearance Eyes: Left: normal appearance. Ears, Nose, Throat: normal pharynx, normal ENT inspection Neck: normal inspection, supple Respiratory: normal breath sounds, chest non-tender, no respiratory distress Cardiovascular: normal peripheral pulses, tachycardia Peripheral Pulses: 2+ radial (R), 2+ radial (L) Gastrointestinal: normal bowel sounds, soft, non-tender, no organomegaly Back: normal inspection, normal range of motion Extremities: normal inspection, edema + Cranial Nerves: normal hearing, normal speech, PERRL Last 48 Hrs of Labs/Gabriele: Laboratory Tests 03/23/18 1320: APTT 40 H 03/23/18 0545: Anion Gap 11, Estimated GFR 30 L, BUN/Creatinine Ratio 22.9, APTT > 120 *H 03/22/18 2300: APTT 108 *H 03/22/18 1100: APTT 88 H 03/22/18 0710: Anion Gap 11, Estimated GFR 29 L, BUN/Creatinine Ratio 21.4 03/22/18 0150: Troponin I 1.85 *H 03/22/18 0150: Anion Gap 11, Estimated GFR 26 L, BUN/Creatinine Ratio 19.6, Magnesium 1.8, TSH 0.708, Free T4 1.16 Diagnostic Data CXR Results SERVICE DATE: 03/20/18 EXAM TYPE: RAD - XRY-PORTABLE CHEST XRAY EXAMINATION: XR PORTABLE CHEST CLINICAL INFORMATION: CHF. Rales. Shortness of breath. COMPARISON: Chest x-ray July 29, 2014 TECHNIQUE: Portable frontal view of the chest was obtained. 6:40 AM FINDINGS: Lung volume is low. There is pulmonary vascular congestion with increased interstitial lung markings, congestive heart failure. Haziness of both lung bases due to pleural effusions and probable bibasilar atelectasis. The basilar density is greater on the left than the right. There is no pneumothorax. IMPRESSION: Congestive heart failure. Assessment/Plan CRCU Impression/Plan: Mr. Young is a 82-year-old gentleman with past medical history of hypertension that presented to the ER with chief complain of dyspnea since one week prior to admission, failed outpatient prednisone treatment by PCP and came in for worsening shortness of breath, he called his primary care and received a dose of prednisone and cough syrup however he continued to have worsening shortness of breath and therefore presented to the emergency department on February. He was found to have pulmonary congestion on the chest x-ray, elevated troponin and elevated proBNP. He was admitted to telemetry and then transferred to ICU. Problem list with assessment and plan. #1 Acute decompensated systolic congestive heart failure. * Hold lasix * Ct Asa * Ct plavix * Plan for cardiac cath, once more stable. * Echo showed LVEF estimated at 45 to 50% with mild global hypokinesia's #2 Acute on chronic kidney injury. * ct to hold diuretics, ACEI , ARB's. * follow RFT * #3 New onset atrial fibrillation. * patient transferred to icu for amiodarone drip for better rate control. * Ct metoprolol * D/c Amio drip and switch to PO 400 mg BID amiodarone * Ct iv heparin for AC #4 Hypertension. * Ct amlodipine * hold ACI and ARB antihypertensive for now * ct to monitor BP Full code Heart healthy diet Heparin for DVT prophylaxis Problem List: 1. Atrial flutter 2. Elevated troponin 3. ARF (acute renal failure) 4. CHF (congestive heart failure) 5. Arthritis Consult Acknowledgment - Thank you for your consult request. Joni VAN,[facility] 03/23/18 1156: Assessment/Plan CRCU Consult Acknowledgment - Thank you for your consult request.
--- NOTE | 2018-03-23 13:04 | PN- CRCU ---
Subjective HPI/Critical Care Issues: Breathing is improved. No palpitations. Aflutter and Atrial fibrillation with controlled heart rate. Creat and cardiac enzymes coming down Objective Current Medications: Current Medications Sig/Kelvin Start time Last Medication Dose Route Stop Time Status Admin Amiodarone HCl 150 MG .STK-MED ONE 03/22 1407 DC IV 03/22 1408 Amiodarone HCl/ 360 MG Q12H 03/23 0930 AC 03/23 Dextrose IV 0941 N/A 1 UNIT Amiodarone HCl/ 360 MG Q12H 03/22 1430 DC 03/22 Dextrose IV 2133 N/A 1 UNIT Amlodipine Besylate 5 MG DAILY 03/20 1157 AC 03/23 PO 0924 Aspirin 81 MG DAILY 03/22 0900 AC 03/23 PO 0924 Atorvastatin Calcium 40 MG 1700 03/22 1700 AC 03/22 PO 1700 Atorvastatin Calcium 80 MG 1700 03/20 1700 DC 03/21 PO 1635 Clopidogrel Bisulfate 75 MG DAILY 03/22 1419 AC 03/23 PO 0925 Dipyridamole 55 MG 1100 03/25 1100 AC Dextrose/Water 29 ML IV 03/25 1103 Furosemide 60 MG DAILY 03/21 0900 DC 03/22 IV 0747 Heparin Sodium/ 25,000 UNIT Q24H 03/23 1130 AC Dextrose IV Dextrose/Water 500 ML Heparin Sodium/ 1 UNIT Q24H 03/22 0345 DC 03/23 Dextrose IV 0342 Dextrose/Water 500 ML Metoprolol Tartrate 25 MG BID 03/21 1402 AC 03/23 PO 0925 Vital Signs & I&O Last 24 Hrs of Vitals and I&O: Vital Signs Date Time Temp Pulse Resp B/P B/P Pulse O2 O2 Flow FiO2 Mean Ox Delivery Rate 03/23 0941 105 145/73 03/23 0925 116 145/73 03/23 0924 108 145/73 03/23 0800 95 Room Air 03/23 0800 97.6 96 16 150/80 95 Room Air 03/23 0000 98.1 98 16 126/60 92 Room Air Room Air 03/23 0000 92 Room Air Room Air 03/223 97 103/69 03/22 202 110 120/62 03/22 2000 97 Nasal 2.0L Cannula 03/22 1600 97 Nasal 3.0L Cannula 03/22 1600 98.3 114 21 116/60 96 Nasal 3.0L Cannula 03/22 1526 121 91/71 Intake & Output 03/23 1600 03/23 0800 03/23 0000 Intake Total 224 611 Output Total 560 650 Balance -336 -39 Intake, IV 224 411 Intake, Oral 0 200 Number 0 0 Bowel Movements Output, Urine 560 650 Patient 210 lb Weight Weight Bed scale Measurement Method Laboratory Tests 03/23 03/22 03/22 03/22 03/22 0545 2300 1100 0710 0150 Chemistry Sodium (137 - 145 mmol/L) 142 145 Potassium (3.5 - 5.1 mmol/L) 3.8 3.7 Chloride (98 - 107 mmol/L) 104 106 Carbon Dioxide (22 - 30 mmol/L) 27 29 Anion Gap (5 - 16) 11 11 BUN (9 - 20 mg/dL) 48 H 47 H Creatinine (0.7 - 1.2 mg/dL) 2.1 H 2.2 H Estimated GFR (>60 ml/min) 30 L 29 L BUN/Creatinine Ratio (7 - 25 %) 22.9 21.4 Troponin I (<0.11 ng/ml) 1.85 *H Coagulation APTT (25 - 37 SEC) > 120 *H 108 *H 88 H 03/22 0150 Chemistry Sodium (137 - 145 mmol/L) 144 Potassium (3.5 - 5.1 mmol/L) 3.9 Chloride (98 - 107 mmol/L) 105 Carbon Dioxide (22 - 30 mmol/L) 28 Anion Gap (5 - 16) 11 BUN (9 - 20 mg/dL) 47 H Creatinine (0.7 - 1.2 mg/dL) 2.4 H Estimated GFR (>60 ml/min) 26 L BUN/Creatinine Ratio (7 - 25 %) 19.6 Magnesium (1.6 - 2.3 mg/dL) 1.8 TSH (0.270 - 4.200 uIU/mL) 0.708 Free T4 (0.85 - 1.93 ng/dL) 1.16 Microbiology Date/Time Procedure - Status Source Growth 03/22 1500 Surveillance Culture - RECD UPPER RESP 03/22 1500 Surveillance Culture - RECD GI Impression/Plan Impression/Plan Impression/Plan: General: WD/WN male in NAD; alert and oriented x 3 Neck: no JVD Heart: irregularly irregular Lungs: clear bilaterally Extremities: no edema IMPRESSION Acute systolic heart failure with ejection fraction of 45% A. fib/flutter now anticoagulated Chronic kidney disease slowly improving Non-ST segment elevation IA with elevated troponin slowly trending down Mild anemia Hypertension and other risk factors RECOMMENDATION Continue anticoagulation and amiodarone Hold Lasix as he appears euvolemic Rate control per cardiology We'll follow Pt critical still with elevated trop and chf tts 36 mins
--- NOTE | 2018-03-23 13:35 | PN- Cardiology ---
Subjective Subjective: * Patient feels well. No chest discomfort, shortness of breath, lightheadedness or palpitations. * atrial fibrillation with controlled heart rate. * creatinine 2.1 * cardiac enzymes have trended down. Objective Vital Signs and I&Os Vital Signs Date Time Temp Pulse Resp B/P B/P Pulse O2 O2 Flow FiO2 Mean Ox Delivery Rate 03/23 0941 105 145/73 03/23 0925 116 145/73 03/23 0924 108 145/73 03/23 0800 95 Room Air 03/23 0800 97.6 96 16 150/80 95 Room Air 03/23 0000 98.1 98 16 126/60 92 Room Air Room Air 03/23 0000 92 Room Air Room Air 03/22 2133 97 103/69 03/22 2021 110 120/62 03/22 2000 97 Nasal 2.0L Cannula 03/22 1600 97 Nasal 3.0L Cannula 03/22 1600 98.3 114 21 116/60 96 Nasal 3.0L Cannula 03/22 1526 121 91/71 Intake & Output 03/23 1600 03/23 0800 03/23 0000 03/22 1600 03/22 0800 03/22 0000 Intake Total 224 611 850 153 350 Output Total 560 796 426 8795 Balance -336 -39 850 -497 -1700 Intake, IV 224 411 450 153 Intake, Oral 0 200 400 350 Number 0 0 Bowel Movements Output, Urine 560 342 [id number] [id number] Patient 210 lb 212 lb Weight Weight Bed scale Bed scale Measurement Method Physical Exam: General: WD/WN male in NAD; alert and oriented x 3 Neck: no JVD Heart: irregularly irregular Lungs: clear bilaterally Extremities: no edema Assessment/Plan Assessment/Plan * This patient has new onset atrial fibrillation. Change Amiodarone to 400mg PO BID and stop his drip. Continue his Metoprolol. Begin IV heparin. TFT's are WNL. * Recent [place]. Begin aspirin 81mg daily, Plavix 75mg daily and IV heparin as above. Continue Lipitor 40mg daily. Begin NTG if chest discomfort. Would probably pursue a cardiac catheterization when creatinine improves to baseline although would have a low threshold for a cardiac cath if chest pain or ischemic ECG changes. He likely has significant coronary artery disease with decompensated CHF and elevated troponin due to atrial fibrillation with increased heart rate in the setting of CAD. These clinical findings are equivalent to a stress test which is not likely to give additional information. * Hold diuretics, ACEI or ARB's and follow renal function. Continue telemetry? Yes
[2018-03-23 14:32] LABS: PTT 40 SEC (25-37)
[2018-03-23 16:00] VITALS: BP 138/80
[2018-03-23 22:35] LABS: PTT 41 SEC (25-37)
[2018-03-24 00:17] VITALS: BP 152/82
[2018-03-24 05:27] LABS: ABSOLUTE BASOPHIL COUNT 0 /CUMM (0.0-0.2); ABSOLUTE EOSINOPHIL COUNT 0.1 /CUMM (0.0-0.7); ABSOLUTE GRANULOCYTE CT 6.8 /CUMM (1.4-6.5); ABSOLUTE LYMPH COUNT 1.1 /CUMM (1.2-3.4); ABSOLUTE MONOCYTE COUNT 0.8 /CUMM (0.10-0.60); BASOPHIL % 0.1 % (0.0-2.0); HEMATOCRIT 41.8 % (42-52); MEAN CORPUSCULAR HGB 28.8 PG (27.0-31.0); MEAN CORPUSCULAR HGB CONC 33.3 G/DL (33.0-37.0); MEAN CORPUSCULAR VOLUME 86.4 FL (80.0-94.0); MEAN PLATELET VOLUME 7.7 FL (7.4-10.4); PLATELET COUNT 255 /CUMM (130-400); RBC DISTRIBUTION WIDTH 15.1 % (11.5-14.5); RED BLOOD CELL CT 4.83 /CUMM (4.70-6.10); WHITE BLOOD CELL COUNT 8.8 /CUMM (4.8-10.8)
[2018-03-24 05:33] LABS: PT 13.2 SEC (9.4-12.5); PTT 96 SEC (25-37)
[2018-03-24 08:00] VITALS: BP 156/78
--- NOTE | 2018-03-24 08:19 | PN- Resident CRCU ---
Subjective HPI/CRCU Issues: States he had a minor cough lastnight. Non productive. No other issues or complaints last night. No CP. Objective Vital Signs & I&O Last 8 Hrs of Vitals and I&O: Laboratory Tests 03/24/18 0510: Anion Gap 10, Estimated GFR 32 L, Glucose 104 H, Calcium 8.9, Phosphorus 2.9, Magnesium 1.6, Total Bilirubin 0.5, AST 14 L, ALT 28, Albumin 2.8 L, PT 13.2 H, INR 1.21 H, APTT 96 H, CBC w Diff NO MAN DIFF REQ, RBC 4.83, MCV 86.4, MCH 28.8, MCHC 33.3, RDW 15.1 H, MPV 7.7, Gran % 77.0 H, Lymphocytes % 12.9 L, Monocytes % 9.0, Eosinophils % 1.0, Basophils % 0.1, Absolute Granulocytes 6.8 H, Absolute Lymphocytes 1.1 L, Absolute Monocytes 0.8 H, Absolute Eosinophils 0.1, Absolute Basophils 0 03/23/18 2120: APTT 41 H 03/23/18 1320: APTT 40 H Vital Signs Date Time Temp Pulse Resp B/P B/P Pulse O2 O2 Flow FiO2 Mean Ox Delivery Rate 03/24 09 117 156/78 03/24 0944 117 156/78 03/24 0944 117 156/78 03/24 0800 99.6 116 18 156/78 92 Room Air Exam General Appearance: no apparent distress, alert, awake Respiratory: normal breath sounds Cardiovascular: irregularly irregular, tachycardia Gastrointestinal: normal bowel sounds, soft, non-tender Extremities: 2+ radial pulses Current Medications: Current Medications Sig/Kelvin Start time Last Medication Dose Route Stop Time Status Admin Amiodarone HCl 400 MG BID 03/23 2100 DC PO Amiodarone HCl 400 MG BID 03/23 1715 AC 03/24 PO 0944 Amiodarone HCl/ 360 MG Q12H 03/23 0930 DC 03/23 Dextrose IV 0941 N/A 1 UNIT Amlodipine Besylate 5 MG DAILY 03/20 1157 AC 03/24 PO 0944 Aspirin 81 MG DAILY 03/22 0900 AC 03/24 PO 0944 Atorvastatin Calcium 40 MG 1700 03/22 1700 AC 03/23 PO 1719 Clopidogrel Bisulfate 75 MG DAILY 03/22 1419 AC 03/24 PO 0944 Dipyridamole 55 MG 1100 03/25 1100 AC Dextrose/Water 29 ML IV 03/25 1103 Heparin Sodium 10,000 UNIT .STK-MED ONE 03/24 0108 DC (Porcine) IV 03/24 0109 Heparin Sodium 7,155 UNIT BOLUS ONE 03/23 2320 DC 03/23 (Porcine) IV 03/23 2321 2320 Heparin Sodium/ 25,000 UNIT Q24H 03/23 1130 AC 03/24 Dextrose IV 0956 Dextrose/Water 500 ML Heparin Sodium/ 1 UNIT Q24H 03/22 0345 DC 03/23 Dextrose IV 0342 Dextrose/Water 500 ML Magnesium Oxide 400 MG BID 03/24 0900 AC 03/24 PO 03/24 210 0944 Metoprolol Tartrate 25 MG BID 03/21 1402 AC 03/24 PO 0944 Impression/Plan Impression/Problem List Impression: Mr. Young is a 82-year-old gentleman with past medical history of hypertension that presented to the ER with chief complain of dyspnea since one week prior to admission, failed outpatient prednisone treatment by PCP and came in for worsening shortness of breath, he called his primary care and received a dose of prednisone and cough syrup however he continued to have worsening shortness of breath and therefore presented to the emergency department on February. He was found to have pulmonary congestion on the chest x-ray, elevated troponin and elevated proBNP. He was admitted to telemetry and then transferred to ICU. Problem list with assessment and plan. #Acute decompensated systolic congestive heart failure - resolved. Acute decompensated CHF and elevated troponin due to atrial fibrillation with increased heart rate in the setting of recent CAD Echo showed LVEF estimated at 45 to 50% with mild global hypokinesia's -Hold lasix for ONEIDA as he apepars euvolemic -Cont Asa, plavix #New onset atrial fibrillation. Patient transferred to icu for amiodarone drip for better rate control. -Cont IV heparin, metoprolol -D/c'ed Amio drip and switched to PO 400 mg BID #Nstemi Trop Max 2.02 and downtrended -cont heparin drip -cont atorvastatin -Plan for possible cardiac cath, once more stable. #Acute on chronic kidney injury. Initial Cr 2.7, baseline 1.5 Current 2.0 -ct to hold diuretics, ACEI , ARB's. #Hypertension. -Ct amlodipine -start hydralazine BID per cardiology -hold ACEI and ARB due to ONEIDA #FULL CODE #HEART HEALTHY DIET #DVT PPX - HEPARIN DRIP Problem List: 1. Atrial flutter 2. NSTEMI (non-ST elevated myocardial infarction) Pain Ratin Tomorrow's Labs & Rationales: cbc icu Plan DVT/Prophylaxis: heparin drip
--- NOTE | 2018-03-24 09:17 | RADIOLOGY REPORT ---
EXAMINATION: XR PORTABLE CHEST CLINICAL INFORMATION: Shortness of breath. Follow up CHF. COMPARISON: Previous chest x-rays, most recent 03/20/2018. TECHNIQUE: Portable frontal view of the chest was obtained. FINDINGS: The cardiac silhouette is enlarged but stable. The lung volumes are low. There is pulmonary venous redistribution. There is bilateral airspace disease, left greater than right, probably representing pulmonary edema. This appears slightly improved. There is increasing attenuation in the more peripheral left lung, question related to increasing left pleural effusion. There are small bilateral pleural effusions, again probably increased on the left. IMPRESSION: Stable enlargement of the cardiac silhouette. Low lung volumes. Question overall mild improvement in pulmonary edema. Bilateral pleural effusions.
--- NOTE | 2018-03-24 11:05 | PN- Pulmonary ---
Subjective HPI/Critical Care Issues: States he had a minor cough lastnight. Non productive. No other issues or complaints last night. No CP. On room air Objective Current Medications: Current Medications Sig/Kelvin Start time Last Medication Dose Route Stop Time Status Admin Amiodarone HCl 400 MG BID 03/23 2100 DC PO Amiodarone HCl 400 MG BID 03/23 1715 AC 03/24 PO 0944 Amiodarone HCl/ 360 MG Q12H 03/23 0930 DC 03/23 Dextrose IV 0941 N/A 1 UNIT Amlodipine Besylate 5 MG DAILY 03/20 1157 AC 03/24 PO 0944 Aspirin 81 MG DAILY 03/22 0900 AC 03/24 PO 0944 Atorvastatin Calcium 40 MG 1700 03/22 1700 AC 03/23 PO 1719 Clopidogrel Bisulfate 75 MG DAILY 03/22 1419 AC 03/24 PO 0944 Dipyridamole 55 MG 1100 03/25 1100 AC Dextrose/Water 29 ML IV 03/25 1103 Heparin Sodium 10,000 UNIT .STK-MED ONE 03/24 0108 DC (Porcine) IV 03/24 0109 Heparin Sodium 7,155 UNIT BOLUS ONE 03/23 2320 DC 03/23 (Porcine) IV 03/23 2321 2320 Heparin Sodium/ 25,000 UNIT Q24H 03/23 1130 AC 03/24 Dextrose IV 0956 Dextrose/Water 500 ML Heparin Sodium/ 1 UNIT Q24H 03/22 0345 DC 03/23 Dextrose IV 0342 Dextrose/Water 500 ML Magnesium Oxide 400 MG BID 03/24 0900 AC 03/24 PO 03/24 2101 0944 Metoprolol Tartrate 25 MG BID 03/21 1402 AC 03/24 PO 0944 Vital Signs & I&O Last 24 Hrs of Vitals and I&O: Vital Signs Date Time Temp Pulse Resp B/P B/P Pulse O2 O2 Flow FiO2 Mean Ox Delivery Rate 03/24 0944 117 156/78 03/24 0944 117 156/78 03/24 0944 117 156/78 03/24 0800 99.6 116 18 156/78 92 Room Air 03/24 0017 99.1 106 22 152/82 93 Room Air Room Air 03/23 2003 127 148/84 03/23 2003 124 148/84 03/23 1720 111 149/76 03/23 1600 96 Room Air 03/23 1600 97.9 100 21 138/80 96 Room Air 03/23 1200 96 Room Air Intake & Output 03/24 1600 03/24 0800 03/24 0000 Intake Total 208 350 Output Total 950 750 Balance -742 -400 Intake, IV 208 150 Intake, Oral 200 Number 0 0 Bowel Movements Output, Urine 950 750 Patient 210 lb Weight Weight Bed scale Measurement Method Impression/Plan Impression/Plan Impression/Plan: General Appearance: no apparent distress, alert, awake Respiratory: normal breath sounds Cardiovascular: irregularly irregular, tachycardia Gastrointestinal: normal bowel sounds, soft, non-tender Extremities: 2+ radial pulses cxr IMPRESSION: Stable enlargement of the cardiac silhouette. Low lung volumes. Question overall mild improvement in pulmonary edema. Bilateral pleural effusions. IMPRESSION * REsolved Acute systolic heart failure with ejection fraction of 45% * A. fib/flutter now anticoagulated * Chronic kidney disease slowly improving stage 3/4 * Non-ST segment elevation [place] with elevated troponin slowly trending down, cardio working up for further eval * Hypertension and other risk factors RECOMMENDATION Continue anticoagulation and amiodarone per cardio Hold Lasix as he appears euvolemic Rate control per cardiology We'll follow Ok to TELE
--- NOTE | 2018-03-24 14:23 | PN- Cardiology ---
Subjective Subjective: * Patient feels well. No chest discomfort, shortness of breath, lightheadedness or palpitations. * atrial fibrillation with controlled heart rate. * creatinine 2.0 * cardiac enzymes have trended down. Objective Vital Signs and I&Os Vital Signs Date Time Temp Pulse Resp B/P B/P Pulse O2 O2 Flow FiO2 Mean Ox Delivery Rate 03/24 0944 117 156/78 03/24 0944 117 156/78 03/24 0944 117 156/78 03/24 0800 99.6 116 18 156/78 92 Room Air 03/24 0017 99.1 106 22 152/82 93 Room Air Room Air 03/23 2003 127 148/84 03/23 2003 124 148/84 03/23 1720 111 149/76 03/23 1600 96 Room Air 03/23 1600 97.9 100 21 138/80 96 Room Air Intake & Output 03/24 1600 03/24 0800 03/24 0000 03/23 1600 03/23 0800 03/23 0000 Intake Total 208 350 706 224 611 Output Total 950 750 500 560 650 Balance -742 -400 206 -336 -39 Intake, IV 208 150 226 224 411 Intake, Oral 200 480 0 200 Number 0 0 0 0 0 Bowel Movements Output, Urine 950 750 500 560 650 Patient 210 lb 210 lb Weight Weight Bed scale Bed scale Measurement Method Physical Exam: General: WD/WN male in NAD; alert and oriented x 3 Neck: no JVD Heart: irregularly irregular Lungs: clear bilaterally Extremities: no edema Assessment/Plan Assessment/Plan * This patient has new onset atrial fibrillation. Continue Amiodarone at 400mg PO BID. Continue his Metoprolol. Continue IV heparin. TFT's are WNL. * Recent NC. Begin aspirin 81mg daily, Plavix 75mg daily and IV heparin as above. Continue Lipitor 40mg daily. Begin NTG if chest discomfort. Would probably pursue a cardiac catheterization when creatinine improves to baseline although would have a low threshold for a cardiac cath if chest pain or ischemic ECG changes. He likely has significant coronary artery disease with decompensated CHF and elevated troponin due to atrial fibrillation with increased heart rate in the setting of CAD. These clinical findings are equivalent to a stress test which is not likely to give additional information. * Hold diuretics due to increased creatinine. Begin hydralazine 20mg BID. No ACEI or ARB's due to decreased renal function. Continue telemetry? Yes
[2018-03-24 14:31] LABS: PTT 55 SEC (25-37)
[2018-03-24 16:00] VITALS: BP 144/68
[2018-03-24 21:57] LABS: PTT 73 SEC (25-37)
[2018-03-24 23:00] VITALS: BP 147/73
[2018-03-25 05:15] LABS: ABSOLUTE BASOPHIL COUNT 0 /CUMM (0.0-0.2); ABSOLUTE EOSINOPHIL COUNT 0.1 /CUMM (0.0-0.7); ABSOLUTE LYMPH COUNT 1.1 /CUMM (1.2-3.4); ABSOLUTE MONOCYTE COUNT 0.7 /CUMM (0.10-0.60); BASOPHIL % 0.4 % (0.0-2.0); GRANULOCYTE % 67.5 % (42.2-75.2); HEMATOCRIT 39.5 % (42-52); MEAN CORPUSCULAR HGB 28.5 PG (27.0-31.0); MEAN CORPUSCULAR HGB CONC 33.2 G/DL (33.0-37.0); MEAN CORPUSCULAR VOLUME 86.1 FL (80.0-94.0); MEAN PLATELET VOLUME 8.4 FL (7.4-10.4); PLATELET COUNT 234 /CUMM (130-400); RBC DISTRIBUTION WIDTH 15.3 % (11.5-14.5); RED BLOOD CELL CT 4.59 /CUMM (4.70-6.10); WHITE BLOOD CELL COUNT 5.9 /CUMM (4.8-10.8)
[2018-03-25 08:00] VITALS: BP 138/72
--- NOTE | 2018-03-25 08:15 | PN- Resident CRCU ---
Misael VAN,[facility] 03/25/18 0815: Subjective HPI/CRCU Issues: No acute events overnight. Stress test cancelled per oil recovery unit operator. Plan for outpatient cath per cardio. Objective Vital Signs & I&O Last 8 Hrs of Vitals and I&O: 03/25/18 0848: APTT 88 H 03/25/18 0412: Anion Gap 9, Estimated GFR 27 L, Glucose 96, Calcium 9.6, Phosphorus 3.9, Magnesium 2.0, Total Bilirubin 0.5, AST 18, ALT 26, Albumin 2.8 L, CBC w Diff NO MAN DIFF REQ, RBC 4.59 L, MCV 86.1, MCH 28.5, MCHC 33.2, RDW 15.3 H, MPV 8.4, Gran % 67.5, Lymphocytes % 18.6 L, Monocytes % 11.5 H, Eosinophils % 2.0, Basophils % 0.4, Absolute Granulocytes 4.0, Absolute Lymphocytes 1.1 L, Absolute Monocytes 0.7 H, Absolute Eosinophils 0.1, Absolute Basophils 0 03/24/18 2101: APTT 73 H 03/24/18 1335: APTT 55 H Vital Signs Date Time Temp Pulse Resp B/P B/P Pulse O2 O2 Flow FiO2 Mean Ox Delivery Rate 03/25 08 60 138/72 03/25 0837 60 138/72 03/25 0837 60 138/72 03/25 0837 60 138/72 03/25 0800 97.4 56 20 138/72 96 Room Air Exam General Appearance: no apparent distress, alert, awake Respiratory: normal breath sounds Cardiovascular: regular rate/rhythm Gastrointestinal: normal bowel sounds Extremities: 2+ radial pulses, no LE edema Current Medications: Current Medications Sig/Kelvin Start time Last Medication Dose Route Stop Time Status Admin Amiodarone HCl 400 MG BID 03/23 1715 AC 03/25 PO 0837 Amlodipine Besylate 5 MG DAILY 03/20 1157 AC 03/25 PO 0837 Aspirin 81 MG DAILY 03/22 0900 AC 03/25 PO 0837 Atorvastatin Calcium 40 MG 1700 03/22 1700 AC 03/24 PO 1623 Clopidogrel Bisulfate 75 MG DAILY 03/22 1419 AC 03/25 PO 0837 Dipyridamole 55 MG 1100 03/25 1100 DC Dextrose/Water 29 ML IV 03/25 1103 Heparin Sodium/ 25,000 UNIT Q24H 03/23 1130 AC 03/25 Dextrose IV 0256 Dextrose/Water 500 ML Hydralazine HCl 20 MG BID 03/24 1500 AC 03/25 PO 0837 Magnesium Oxide 400 MG BID 03/24 0900 DC 03/24 PO 03/24 Metoprolol Tartrate 25 MG BID 03/21 1402 AC 03/25 PO 0837 Nystatin 1 DARIN TID PRN 03/24 1415 AC 03/25 TOP 0837 Impression/Plan Impression/Problem List Impression: Mr. Young is a 82-year-old gentleman with past medical history of hypertension that presented to the ER with chief complain of dyspnea since one week prior to admission, failed outpatient prednisone treatment by PCP and came in for worsening shortness of breath, he called his primary care and received a dose of prednisone and cough syrup however he continued to have worsening shortness of breath and therefore presented to the emergency department on February. He was found to have pulmonary congestion on the chest x-ray, elevated troponin and elevated proBNP. He was admitted to telemetry and then transferred to ICU. Problem list with assessment and plan. #Acute decompensated systolic congestive heart failure - resolved. Acute decompensated CHF and elevated troponin due to atrial fibrillation with increased heart rate in the setting of recent CAD Echo showed LVEF estimated at 45 to 50% with mild global hypokinesis -Hold lasix for ONEIDA as he apepars euvolemic -Cont aspirin #New onset atrial fibrillation. Patient transferred to icu for amiodarone drip for better rate control. -metoprolol -D/c'ed Amio drip and switched to PO 400 mg BID. will switch to 200 daily after loading for 1 week. -dc'ed heparin drip and plavix, started on eliquis 2.5mg BID #Nstemi Trop Max 2.02 and downtrended -switched from heparin drip to Eliquis -cont atorvastatin -Plan for outpatient cardiac cath #Acute on chronic kidney injury. Initial Cr 2.7, baseline 1.9 Current 2.3 -ct to hold diuretics, ACEI , ARB's. #Hypertension. -ct amlodipine -cont hydralazine per cardiology -hold ACEI and ARB due to ONEIDA #FULL CODE #HEART HEALTHY DIET #DVT PPX - eliquis Problem List: 1. NSTEMI (non-ST elevated myocardial infarction) 2. Afib Pain Ratin Tomorrow's Labs & Rationales: icu cbc Plan DVT/Prophylaxis: Yenifer Davidson 03/25/18 1642: Attending MD Review Statement Attending Sign Off Attending Cosign Statement: I have: examined this patient, reviewed aval EMR data, personally reviewd images, discussd w/resident/PA/[employer], discussed mgmt plan w/doreen, discussed mgmt plan w/pt. Other Findings: afib- switched to amiodarone po from iv drip NSTEMI- dced iv heparin drip. now on asa and eliquis. d/w pt the care plan.
--- NOTE | 2018-03-25 08:20 | PN- Pulmonary ---
Subjective HPI/Critical Care Issues: Sleeping comfortably Stable Objective Current Medications: Current Medications Sig/Kelvin Start time Last Medication Dose Route Stop Time Status Admin Amiodarone HCl 400 MG BID 03/23 1715 AC 03/24 PO 2054 Amlodipine Besylate 5 MG DAILY 03/20 1157 AC 03/24 PO 09 Aspirin 81 MG DAILY 03/22 0900 AC 03/24 PO 09 Atorvastatin Calcium 40 MG 1700 03/22 1700 AC 03/24 PO 1623 Clopidogrel Bisulfate 75 MG DAILY 03/22 1419 AC 03/24 PO 09 Dipyridamole 55 MG 1100 03/25 1100 AC Dextrose/Water 29 ML IV 03/25 1103 Heparin Sodium/ 25,000 UNIT Q24H 03/23 1130 AC 03/25 Dextrose IV 0256 Dextrose/Water 500 ML Hydralazine HCl 20 MG BID 03/24 1500 AC 03/24 PO 2054 Magnesium Oxide 400 MG BID 03/24 0900 DC 03/24 PO 03/24 Metoprolol Tartrate 25 MG BID 03/21 1402 AC 03/24 PO 2055 Nystatin 1 DARIN TID PRN 03/24 1415 [facility] Vital Signs & I&O Last 24 Hrs of Vitals and I&O: Vital Signs Date Time Temp Pulse Resp B/P B/P Pulse O2 O2 Flow FiO2 Mean Ox Delivery Rate 03/24 2300 98.5 100 16 147/73 94 Room Air 03/24 2056 97 116/59 03/24 2055 97 116/59 03/24 1624 116 144/68 03/24 1600 98.4 88 18 144/68 94 Room Air 03/24 0944 117 156/78 03/24 0944 117 156/78 03/24 0944 117 156/78 Intake & Output 03/25 1600 03/25 0800 03/25 0000 Intake Total 208 328 Output Total 550 300 Balance -342 28 Intake, IV 208 208 Intake, Oral 120 Number 1 Bowel Movements Output, Urine 550 300 Laboratory Tests 03/25 03/24 03/24 0412 2101 1335 Chemistry Sodium (137 - 145 mmol/L) 140 Potassium (3.5 - 5.1 mmol/L) 4.1 Chloride (98 - 107 mmol/L) 106 Carbon Dioxide (22 - 30 mmol/L) 25 Anion Gap (5 - 16) 9 BUN (9 - 20 mg/dL) 43 H Creatinine (0.7 - 1.2 mg/dL) 2.3 H Estimated GFR (>60 ml/min) 27 L Glucose (65 - 99 mg/dL) 96 Calcium (8.4 - 10.2 mg/dL) 9.6 Phosphorus (2.5 - 4.5 mg/dL) 3.9 Magnesium (1.6 - 2.3 mg/dL) 2.0 Total Bilirubin (0.2 - 1.3 mg/dL) 0.5 AST (17 - 59 U/L) 18 ALT (21 - 72 U/L) 26 Albumin (3.5 - 5.0 g/dL) 2.8 L Coagulation APTT (25 - 37 SEC) 73 H 55 H Hematology CBC w Diff NO MAN DIFF REQ WBC (4.8 - 10.8 /CUMM) 5.9 RBC (4.70 - 6.10 /CUMM) 4.59 L Hgb (14.0 - 18.0 G/DL) 13.1 L Hct (42 - 52 %) 39.5 L MCV (80.0 - 94.0 FL) 86.1 MCH (27.0 - 31.0 PG) 28.5 MCHC (33.0 - 37.0 G/DL) 33.2 RDW (11.5 - 14.5 %) 15.3 H Plt Count (130 - 400 /CUMM) 234 MPV (7.4 - 10.4 FL) 8.4 Gran % (42.2 - 75.2 %) 67.5 Lymphocytes % (20.5 - 51.1 %) 18.6 L Monocytes % (1.7 - 9.3 %) 11.5 H Eosinophils % (0 - 5 %) 2.0 Basophils % (0.0 - 2.0 %) 0.4 Absolute Granulocytes (1.4 - 6.5 /CUMM) 4.0 Absolute Lymphocytes (1.2 - 3.4 /CUMM) 1.1 L Absolute Monocytes (0.10 - 0.60 /CUMM) 0.7 H Absolute Eosinophils (0.0 - 0.7 /CUMM) 0.1 Absolute Basophils (0.0 - 0.2 /CUMM) 0 03/24 03/23 03/23 0510 2120 1320 Chemistry Sodium (137 - 145 mmol/L) 142 Potassium (3.5 - 5.1 mmol/L) 4.0 Chloride (98 - 107 mmol/L) 107 Carbon Dioxide (22 - 30 mmol/L) 25 Anion Gap (5 - 16) 10 BUN (9 - 20 mg/dL) 36 H Creatinine (0.7 - 1.2 mg/dL) 2.0 H Estimated GFR (>60 ml/min) 32 L Glucose (65 - 99 mg/dL) 104 H Calcium (8.4 - 10.2 mg/dL) 8.9 Phosphorus (2.5 - 4.5 mg/dL) 2.9 Magnesium (1.6 - 2.3 mg/dL) 1.6 Total Bilirubin (0.2 - 1.3 mg/dL) 0.5 AST (17 - 59 U/L) 14 L ALT (21 - 72 U/L) 28 Albumin (3.5 - 5.0 g/dL) 2.8 L Coagulation PT (9.4 - 12.5 SEC) 13.2 H INR (0.90 - 1.17) 1.21 H APTT (25 - 37 SEC) 96 H 41 H 40 H Hematology CBC w Diff NO MAN DIFF REQ WBC (4.8 - 10.8 /CUMM) 8.8 RBC (4.70 - 6.10 /CUMM) 4.83 Hgb (14.0 - 18.0 G/DL) 13.9 L Hct (42 - 52 %) 41.8 L MCV (80.0 - 94.0 FL) 86.4 MCH (27.0 - 31.0 PG) 28.8 MCHC (33.0 - 37.0 G/DL) 33.3 RDW (11.5 - 14.5 %) 15.1 H Plt Count (130 - 400 /CUMM) 255 MPV (7.4 - 10.4 FL) 7.7 Gran % (42.2 - 75.2 %) 77.0 H Lymphocytes % (20.5 - 51.1 %) 12.9 L Monocytes % (1.7 - 9.3 %) 9.0 Eosinophils % (0 - 5 %) 1.0 Basophils % (0.0 - 2.0 %) 0.1 Absolute Granulocytes (1.4 - 6.5 /CUMM) 6.8 H Absolute Lymphocytes (1.2 - 3.4 /CUMM) 1.1 L Absolute Monocytes (0.10 - 0.60 /CUMM) 0.8 H Absolute Eosinophils (0.0 - 0.7 /CUMM) 0.1 Absolute Basophils (0.0 - 0.2 /CUMM) 0 Microbiology Date/Time Procedure - Status Source Growth 03/22 1500 Surveillance Culture - COMP UPPER RESP 03/22 1500 Surveillance Culture - COMP GI Impression/Plan Impression/Plan Impression/Plan: General Appearance: no apparent distress, alert, awake Respiratory: normal breath sounds Cardiovascular: irregularly irregular, tachycardia Gastrointestinal: normal bowel sounds, soft, non-tender Extremities: 2+ radial pulses cxr IMPRESSION: Stable enlargement of the cardiac silhouette. Low lung volumes. Question overall mild improvement in pulmonary edema. Bilateral pleural effusions. IMPRESSION * REsolved Acute systolic heart failure with ejection fraction of 45% * A. fib/flutter now anticoagulated * Chronic kidney disease creat 2.3 * Non-ST segment elevation [place] with elevated troponin slowly trending down, cardio working up for further eval * Hypertension and other risk factors RECOMMENDATION Continue anticoagulation and amiodarone per cardio Hold Lasix as he appears euvolemic Rate control per cardiology We'll follow Ok to TELE
[2018-03-25 09:30] LABS: PTT 88 SEC (25-37)
--- NOTE | 2018-03-25 10:31 | PN- Cardiology ---
Subjective Subjective: The patient is feeling well. No current chest pain or shortness of breath. No palpitations. No diaphoresis. No nausea or vomiting. Objective Vital Signs and I&Os Vital Signs Date Time Temp Pulse Resp B/P B/P Pulse O2 O2 Flow FiO2 Mean Ox Delivery Rate 03/25 0837 60 138/72 03/25 0837 60 138/72 03/25 0837 60 138/72 03/25 0837 60 138/72 03/24 2300 98.5 100 16 147/73 94 Room Air 03/24 205 97 116/59 03/24 205 97 116/59 03/24 1624 116 144/68 03/24 1600 98.4 88 18 144/68 94 Room Air Intake & Output 03/25 1600 03/25 0803/25 0000 03/24 1600 03/24 0000 Intake Total 410 834 1950 208 350 Output Total 550 300 600 950 750 Balance -342 28 523 -742 -400 Intake, IV 208 208 403 208 150 Intake, Oral 120 720 200 Number 1 1 0 0 Bowel Movements Output, Urine 550 300 600 950 750 Patient 210 lb Weight Weight Bed scale Measurement Method Physical Exam: Gen: The patient is in no acute distress HEENT: Normal nose, ears, and oropharynx. Pupils equal bilaterally. Conjunctiva normal. Neck: Supple with no JVD, no masses, and no thyromegaly Lungs: Bilateral rales with normal respiratory effort Heart: S1, S2, 2/6 systolic murmur. No peripheral edema, 2+ pulses in the lower extremities bilaterally Abdomen: Soft, nontender, no masses. No hepatomegaly. No splenomegaly Extremities: No clubbing or cyanosis. Normal muscle strength in the upper and lower extremities Skin: Normal skin turgor with no skin ulcers or lesions noted. Neuro: Cranial nerves intact. Sensation intact Psych: Alert and oriented x 3 with appropriate affect Current Medications: Current Medications Sig/Kelvin Start time Last Medication Dose Route Stop Time Status Admin Amiodarone HCl 400 MG BID 03/23 1715 AC 03/25 PO 0837 Amlodipine Besylate 5 MG DAILY 03/20 1157 AC 03/25 PO 0837 Aspirin 81 MG DAILY 03/22 0900 AC 03/25 PO 0837 Atorvastatin Calcium 40 MG 1700 03/22 1700 AC 03/24 PO 1623 Clopidogrel Bisulfate 75 MG DAILY 03/22 1419 AC 03/25 PO 0837 Dipyridamole 55 MG 1100 03/25 1100 AC Dextrose/Water 29 ML IV 03/25 1103 Heparin Sodium/ 25,000 UNIT Q24H 03/23 1130 AC 03/25 Dextrose IV 0256 Dextrose/Water 500 ML Hydralazine HCl 20 MG BID 03/24 1500 AC 03/25 PO 0837 Magnesium Oxide 400 MG BID 03/24 0900 DC 03/24 PO 03/24 210 2049 Metoprolol Tartrate 25 MG BID 03/21 1402 AC 03/25 PO 0837 Nystatin 1 DARIN TID PRN 03/24 1415 03/25 TOP 0837 Results Last 48 Hrs of Labs/Mics: Laboratory Tests 03/25/18 0848: APTT 88 H 03/25/18 0412: Anion Gap 9, Estimated GFR 27 L, Glucose 96, Calcium 9.6, Phosphorus 3.9, Magnesium 2.0, Total Bilirubin 0.5, AST 18, ALT 26, Albumin 2.8 L, CBC w Diff NO MAN DIFF REQ, RBC 4.59 L, MCV 86.1, MCH 28.5, MCHC 33.2, RDW 15.3 H, MPV 8.4, Gran % 67.5, Lymphocytes % 18.6 L, Monocytes % 11.5 H, Eosinophils % 2.0, Basophils % 0.4, Absolute Granulocytes 4.0, Absolute Lymphocytes 1.1 L, Absolute Monocytes 0.7 H, Absolute Eosinophils 0.1, Absolute Basophils 0 03/24/18 210: APTT 73 H 03/24/18 1335: APTT 55 H 03/24/18 0510: Anion Gap 10, Estimated GFR 32 L, Glucose 104 H, Calcium 8.9, Phosphorus 2.9, Magnesium 1.6, Total Bilirubin 0.5, AST 14 L, ALT 28, Albumin 2.8 L, PT 13.2 H, INR 1.21 H, APTT 96 H, CBC w Diff NO MAN DIFF REQ, RBC 4.83, MCV 86.4, MCH 28.8, MCHC 33.3, RDW 15.1 H, MPV 7.7, Gran % 77.0 H, Lymphocytes % 12.9 L, Monocytes % 9.0, Eosinophils % 1.0, Basophils % 0.1, Absolute Granulocytes 6.8 H, Absolute Lymphocytes 1.1 L, Absolute Monocytes 0.8 H, Absolute Eosinophils 0.1, Absolute Basophils 0 03/23/18 2120: APTT 41 H 03/23/18 1320: APTT 40 H Recent Imaging Studies: Chest x-ray 03/24/18, Stable enlargement of the cardiac silhouette. Low lung volumes. Question overall mild improvement in pulmonary edema. Bilateral pleural effusions. Echocardiogram 03/21/18: Normal size left ventricle. Left ventricular systolic function is poorly visualized but appears to be mildly decreased, with LVEF estimated at 45 to 50%. Mild mitral regurgitation. Mild aortic stenosis. Mild aortic regurgitation. Trace tricuspid regurgitation. Mild global hypokinesis. Technically difficult study. Assessment/Plan Assessment/Plan Assessment: 1. Acute heart failure with mildly decreased ejection fraction. LVEF 45-50% 2. Chronic kidney disease with acute exacerbation, improving 3. Hypertension 4. Episode of atrial fibrillation, converted to sinus rhythm on amiodarone. Anticoagulated on warfarin 5. Positive troponin, possible NSTEMI vs. Type II [place]. No chest pain. Plan: * Continue amiodarone. Decrease dose to 200 mg daily after 1 week * Start Eliquis 2.5 mg po bid * Discontinue heparin with first dose of Eliquis * Continue aspirin * Discontinue Plavix when starting eliquis * Possible cardiac catheterization as outpatient once renal function is at baseline * Continue metoprolol * Continue atorvastatin Continue telemetry? Yes
[2018-03-25 16:00] VITALS: BP 132/72
[2018-03-25 22:32] VITALS: BP 152/70
[2018-03-26 06:54] VITALS: BP 148/72
--- NOTE | 2018-03-26 06:57 | Transfer of Care Summary ---
Hospital Course Course Hospital Course: Reason for transfer to ICU: Amio drip HPI: 82-year-old yo M with a pmhx of HTN on labetalol who presented to the ER with a chief complain of SOB x1 week which failed outpatient prednisone treatment who presented to the ED for worsening of SOB and was found to have chf , NSTEMI, new onset afib transferred to the ICU for admiodarone drip. Interval events in the Floor: #Acute decompensated systolic congestive heart failure - resolved. Acute decompensated CHF and elevated troponin due to atrial fibrillation with increased heart rate in the setting of recent CAD. ProBNP elevated 7530. Gave lasix 60x1 and 40x1 during admission. Echo showed LVEF estimated at 45 to 50% with mild global hypokinesis. Held lasix during rest of admission for ONEIDA as appeared euvolemic. #New onset atrial fibrillation. Patient transferred to icu for amiodarone and IV heparin drip. D/c'ed Amio drip as HR well controlled and switched to PO 400 mg BID. Also started on metoprolol BID. IV heparin dc'ed and started on eliquis 2.5mg BID. Plan to to decrease amiodarone to 200mg daily after loading for 1 week. #Nstemi Trop Max 2.02 and downtrended. Started on heparin drip and switched to oral Eliquis as mentioned above. Started on atorvastatin and aspirin. There were plans for inpatient stress test/cath which were cancelled. Cardiology planning for outpatient cardiac cath. #Acute on chronic kidney injury. Initial Cr 2.7, baseline 1.9 Current 2.3 -ct to hold diuretics, ACEI/ARB/nephrotoxins #Hypertension. Started on amlodipine and hydralazine. Holding off any ACEI and ARB due to ONEIDA on CKD. NIPPV: Yes/ No (details if Yes) Antibiotics: None Catheters/ IV access: [place] Things to follow up (Blood Cx, Imaging, ABG etc...) DVT prophylaxis: [facility]ena Consultants: Cardiology Code status: FULL CODE Family updated: Yes/ No Assessment/Plan: See above
--- NOTE | 2018-03-26 07:16 | PN- Housestaff ---
Geoffrey VAN,[facility] 03/26/18 0716: Subjective Follow-up For: 1. Acute heart failure with mildly decreased ejection fraction. LVEF 45-50% 2. Chronic kidney disease with acute exacerbation, improving 3. Hypertension 4. Episode of atrial fibrillation, converted to sinus rhythm on amiodarone. Anticoagulated on warfarin 5. Positive troponin, possible NSTEMI vs. Type II [place]. Tele-Events Since Last Visit: NSR with 1AVB HR 62-67 Subjective: Patient reports improvement in his breathing. Denies any chest pain or palpitations. Review of Systems Constitutional: Reports: no symptoms. EENTM: Reports: no symptoms. Cardiovascular: Reports: no symptoms. Respiratory: Reports: no symptoms. Gastrointestinal: Reports: no symptoms. Genitourinary: Reports: no symptoms. Musculoskeletal: Reports: no symptoms. Skin: Reports: no symptoms. Neurological/Psychological: Reports: no symptoms. Hematologic/Endocrine: Reports: no symptoms. Immunologic/Allergic: Reports: no symptoms. Objective Last 24 Hrs of Vital Signs/I&O Vital Signs Date Time Temp Pulse Resp B/P B/P Pulse O2 O2 Flow FiO2 Mean Ox Delivery Rate 03/26 1421 98.1 60 18 120/56 97 Room Air 03/26 1319 Room Air Room Air 03/26 0955 62 132/64 03/26 0955 62 132/64 03/26 0955 62 132/64 03/26 0954 62 132/64 03/26 0654 98.2 64 12 148/72 95 Room Air 03/25 2232 98.0 66 18 152/70 95 Room Air 03/25 2046 66 162/78 03/25 2046 66 162/78 03/25 2046 66 162/78 03/25 1600 98.1 63 20 132/72 95 Room Air Intake & Output 03/26 1600 03/26 0800 03/26 0000 Intake Total 800 Output Total 450 450 800 Balance 350 -450 -800 Intake, Oral 800 Number 1 Bowel Movements Output, Urine 450 450 800 Patient 212 lb 212 lb Weight Weight Bed scale Measurement Method Physical Exam General Appearance: Alert, Oriented X3, Cooperative, No Acute Distress Skin: No Rashes, No Breakdown Cardiovascular: Regular Rate, Normal S1, Normal S2 Lungs: Clear to Auscultation, Normal Air Movement Abdomen: Normal Bowel Sounds, Soft, No Tenderness Extremities: No Clubbing, No Cyanosis, No Edema Current Medications: Current Medications Sig/Kelvin Start time Last Medication Dose Route Stop Time Status Admin Amiodarone HCl 400 MG BID 03/23 1715 AC 03/26 PO 0955 Amlodipine Besylate 5 MG DAILY 03/20 1157 AC 03/26 PO 0955 Apixaban 2.5 MG BID 03/25 1145 AC 03/26 PO 0955 Aspirin 81 MG DAILY 03/22 0900 AC 03/26 PO 0955 Atorvastatin Calcium 40 MG 1700 03/22 1700 AC 03/25 PO 1648 Hydralazine HCl 20 MG BID 03/24 1500 AC 03/26 PO 0954 Metoprolol Tartrate 25 MG BID 03/21 1402 AC 03/26 PO 0955 Nystatin 1 DARIN TID PRN 03/24 1415 AC 03/25 TOP 0837 Last 24 Hrs of Lab/Gabriele Results Last 24 Hrs of Labs/Mics: Laboratory Tests 03/26/18 0635: Anion Gap 12, Estimated GFR 30 L, BUN/Creatinine Ratio 21.9, Magnesium 2.0, CBC w Diff NO MAN DIFF REQ, RBC 4.63 L, MCV 85.3, MCH 28.8, MCHC 33.8, RDW 15.1 H, MPV 8.6, Gran % 82.5 H, Lymphocytes % 8.5 L, Monocytes % 7.1, Eosinophils % 1.5, Basophils % 0.4, Absolute Granulocytes 6.9 H, Absolute Lymphocytes 0.7 L, Absolute Monocytes 0.6, Absolute Eosinophils 0.1, Absolute Basophils 0 03/25/18 2100: APTT Cancelled Assessment/Plan Assessment: Mr. Young is a 82-year-old gentleman with past medical history of hypertension that presented to the ER with chief complain of dyspnea since one week prior to admission, failed outpatient prednisone treatment by PCP and came in for worsening shortness of breath, he called his primary care and received a dose of prednisone and cough syrup however he continued to have worsening shortness of breath and therefore presented to the emergency department on February. He was found to have pulmonary congestion on the chest x-ray, elevated troponin and elevated proBNP. He was admitted to telemetry and then transferred to ICU. Problem list with assessment and plan. #Acute decompensated systolic congestive heart failure - resolved. Acute decompensated CHF and elevated troponin due to atrial fibrillation with increased heart rate in the setting of recent CAD Echo showed LVEF estimated at 45 to 50% with mild global hypokinesis -Lasix on hold for ONEIDA as he apepars euvolemic -Continue aspirin #New onset atrial fibrillation. -Continue metoprolol and amiodarone PO 400 mg BID until 03/29, will switch to 200 daily after loading starting 02/27.. -Continue eliquis 2.5mg BID #Nstemi Trop Max 2.02 and downtrended -Continue Eliquis, atorvastatin and metoprolol. -Plan for outpatient cardiac cath. #Acute on chronic kidney injury. Initial Cr 2.7, baseline 1.9 Current 2.1 -Continue to hold diuretics, ACEI , ARB's. #Hypertension. - Continue amlodipine and hydralazine per cardiology - Labetolol discontinued. #FULL CODE #HEART HEALTHY DIET #DVT PPX - eliquis Problem List: 1. Atrial fibrillation 2. NSTEMI (non-ST elevated myocardial infarction) 3. CHF (congestive heart failure) Pain Ratin Pain Location: NA Pain Goal: Remain pain free Pain Plan: Pain Pathway Tomorrow's Labs & Rationales: None Lea Riojas MD 03/26/18 1342: Attending MD Review Statement Attending Statement Attending MD Statement: examined this patient, discuss w/resident/PA/PILE TRIMMER, agreed w/resident/PA/PILE TRIMMER, reviewed EMR data (avail) Attending Assessment/Plan: 82M PMH HTN presenting with acute onset of shortness of breath, found to be hypertensive with ONEIDA and pulmonary edema. Diuresed with IV Lasix. EKG NSR with IVCD and mildly elevated troponin. Course complicated by rapid atrial fibrillation with hypotension requiring ICU transfer, converted to NSR with Amiodarone, anti-coagulated with heparin drip then Coumadin, now back to telemetry service. Patient is doing well. He is breathing comfortably and has no complaints. He appears improved since being seen prior to ICU transfer. He is in NSR with a rate of 61. 1. Acute pulmonary edema 2. ONEIDA 3. Hypertensive emergency 4. Type 2 myocardial infarction 5. New onset atrial fibrillation Plan - Stable for discharge to STR - Hold Lasix due to increased creatinine. Can be restarted as outpatient if warranted. - Eliquis 2.5mg BID - ASA, Metoprolol 25mg BID, Lipitor 40mg - Outpatient cardiac catheterization when creatinine improves - Will follow up with Dr. Serna as an outpatient
[2018-03-26 08:04] LABS: ABSOLUTE BASOPHIL COUNT 0 /CUMM (0.0-0.2); ABSOLUTE EOSINOPHIL COUNT 0.1 /CUMM (0.0-0.7); ABSOLUTE GRANULOCYTE CT 6.9 /CUMM (1.4-6.5); ABSOLUTE LYMPH COUNT 0.7 /CUMM (1.2-3.4); ABSOLUTE MONOCYTE COUNT 0.6 /CUMM (0.10-0.60); BASOPHIL % 0.4 % (0.0-2.0); EOSINOPHIL % 1.5 % (0-5); GRANULOCYTE % 82.5 % (42.2-75.2); HEMATOCRIT 39.5 % (42-52); MEAN CORPUSCULAR HGB 28.8 PG (27.0-31.0); MEAN CORPUSCULAR HGB CONC 33.8 G/DL (33.0-37.0); MEAN CORPUSCULAR VOLUME 85.3 FL (80.0-94.0); MEAN PLATELET VOLUME 8.6 FL (7.4-10.4); PLATELET COUNT 236 /CUMM (130-400); RBC DISTRIBUTION WIDTH 15.1 % (11.5-14.5); RED BLOOD CELL CT 4.63 /CUMM (4.70-6.10); WHITE BLOOD CELL COUNT 8.4 /CUMM (4.8-10.8)
[2018-03-26] MEDS ORDERED: ATORVASTATIN CA40 M1 PO (11:28)
[2018-03-26] MEDS ORDERED: METOPROLOL TART25 M1 PO (11:28)
[2018-03-26] MEDS ORDERED: AMLODIPINE BESYL5 M1 PO (11:28)
[2018-03-26] MEDS ORDERED: ASPIRIN81 M4 PO (11:28)
[2018-03-26] MEDS ORDERED: HYDRALAZINE HCL10 M1 PO (11:28)
[2018-03-26] MEDS ORDERED: ELIQUIS2.5 M1 PO (11:28)
--- NOTE | 2018-03-26 11:36 | Patient Discharge Instructions ---
Discharge Instructions General Discharge Information You were seen/treated for: 1. Acute heart failure 2. Chronic kidney disease with acute exacerbation 3. Hypertension 4. Episode of atrial fibrillation 5. Positive troponin, possible NSTEMI vs. Type II [place]. No chest pain. Watch for these problems: Please return to the ER in case of any chest pain, palpitations, shortness of breath or worsening lower extremity edema. Special Instructions: Please follow up with your PCP within a week after discharge. Please follow up with your billing spec within a week after discharge. You will need a cardiac catheterization as an outpatient once renal function is back to baseline. We have stopped labetolol and started you on a couple of new medications including amiodarone, metoprolol, hydralazine, amlodipine, aspirin and a blood thinner(Eliquis), please continue taking them. please repeat your blood work on 04/07/2018. Diet Continue normal diet: Yes Recommended Diet: Heart Healthy Activity Full Activity/No Limits: Yes Activity Self Limited: Yes Acute Coronary Syndrome Inclusion Criteria At [place] or during hospital stay patient has or had the following: ACS DIAGNOSIS Yes Discharge Core Measures Meds if any: Prescribed or Continued at Discharge CALI/ARB if EF <40% No Aspirin Yes Beta-Daryn Yes Statin Yes Meds if any: NOT Prescribed or Continued at Discharge Congestive Heart Failure Inclusion Criteria At [place] or during hospital stay patient has or had the following: CHF DIAGNOSIS Yes Discharge Core Measures Meds if any: Prescribed or Continued at Discharge CALI/ARB for EF <40% No Meds if any: NOT Prescribed or Continued at Discharge No CALI/ARB d/t Renal Failure/Azotemia Cerebrovascular accident Inclusion Criteria At [place] or during hospital stay patient has or had the following: CVA/TIA Diagnosis No Discharge Core Measures Meds if any: Prescribed or Continued at Discharge Meds if any: NOT Prescribed or Continued at Discharge Venous thromboembolism Inclusion Criteria VTE Diagnosis No VTE Type NONE VTE Confirmed by (Test) NONE Discharge Core Measures - Per Current guidelines, there needs to be overlap - treatment for the first 5 days of Warfarin therapy. - If discharged on Warfarin prior to 5 days of - overlap therapy, the patient will need to be - assessed for post discharge needs including - *Post discharge parental anticoagulation - *Warfarin and/or parental anticoagulation education - *Follow up date to check INR post discharge At least 5 days overlap therapy as Inpatient No Meds if any: Prescribed or Continued at Discharge Note: Overlap Therapy is Warfarin and Anticoagulant Meds if any: NOT Prescribed or Continued at Discharge
[2018-03-26] MEDS ORDERED: AMIODARONE HCL200 M1 PO ×5 (11:38→16:28)
--- NOTE | 2018-03-26 11:48 | PN- Cardiology ---
Subjective Subjective: The patient is sitting comfortably in bed. He denies any new cardiac symptoms or issues. Objective Vital Signs and I&Os Vital Signs Date Time Temp Pulse Resp B/P B/P Pulse O2 O2 Flow FiO2 Mean Ox Delivery Rate 03/26 955 62 132/64 03/26 0955 62 132/64 03/26 0955 62 132/64 03/26 0954 62 132/64 03/26 0654 98.2 64 12 148/72 95 Room Air 03/25 2232 98.0 66 18 152/70 95 Room Air 03/25 2046 66 162/78 03/256 66 162/78 03/25 2046 66 162/78 03/25 1600 98.1 63 20 132/72 95 Room Air Intake & Output 03/26 0803/26 0000 03/25 0000 Intake Total 870 208 328 Output Total 450 800 450 550 300 Balance -450 -800 420 -342 28 Intake, IV 390 208 208 Intake, Oral 480 120 Number 0 1 Bowel Movements Output, Urine 450 800 450 550 300 Patient 212 lb Weight Weight Bed scale Measurement Method Physical Exam: General Appearance: well developed/nourished, alert, awake, oriented Head: normal HEENT: Normal Neck: supple, JVP normal, carotid upstrokes normal bilaterally, no masses or thyromegaly Respiratory: chest non-tender, clear to auscultation and percussion bilaterally Cardiovascular: regular rate/rhythm, normal S1, S2, 1/6 systolic murmur Abdomen: normal bowel sounds, soft, non-tender Extremities: normal inspection, no edema Vascular: Pulses are 2+ and equal bilaterally Neurologic: Grossly normal/nonfocal Current Medications: Current Medications Sig/Kelvin Start time Last Medication Dose Route Stop Time Status Admin Amiodarone HCl 400 MG BID 03/23 1715 AC 03/26 PO 0955 Amlodipine Besylate 5 MG DAILY 03/20 1157 AC 03/26 PO 09 Apixaban 2.5 MG BID 03/25 1145 AC 03/26 PO 0955 Aspirin 81 MG DAILY 03/22 0900 AC 03/26 PO 0955 Atorvastatin Calcium 40 MG 1700 03/22 1700 AC 03/25 PO 1648 Hydralazine HCl 20 MG BID 03/24 1500 AC 03/26 PO 0954 Metoprolol Tartrate 25 MG BID 03/21 1402 AC 03/26 PO 0955 Nystatin 1 DARIN TID PRN 03/24 1415 03/25 TOP 0837 Results Last 48 Hrs of Labs/Mics: Laboratory Tests 03/26/18 0635: Anion Gap 12, Estimated GFR 30 L, BUN/Creatinine Ratio 21.9, Magnesium 2.0, CBC w Diff NO MAN DIFF REQ, RBC 4.63 L, MCV 85.3, MCH 28.8, MCHC 33.8, RDW 15.1 H, MPV 8.6, Gran % 82.5 H, Lymphocytes % 8.5 L, Monocytes % 7.1, Eosinophils % 1.5, Basophils % 0.4, Absolute Granulocytes 6.9 H, Absolute Lymphocytes 0.7 L, Absolute Monocytes 0.6, Absolute Eosinophils 0.1, Absolute Basophils 0 03/25/18 2100: APTT Cancelled 03/25/18 0848: APTT 88 H 03/25/18 0412: Anion Gap 9, Estimated GFR 27 L, Glucose 96, Calcium 9.6, Phosphorus 3.9, Magnesium 2.0, Total Bilirubin 0.5, AST 18, ALT 26, Albumin 2.8 L, CBC w Diff NO MAN DIFF REQ, RBC 4.59 L, MCV 86.1, MCH 28.5, MCHC 33.2, RDW 15.3 H, MPV 8.4, Gran % 67.5, Lymphocytes % 18.6 L, Monocytes % 11.5 H, Eosinophils % 2.0, Basophils % 0.4, Absolute Granulocytes 4.0, Absolute Lymphocytes 1.1 L, Absolute Monocytes 0.7 H, Absolute Eosinophils 0.1, Absolute Basophils 0 03/24/18 2101: APTT 73 H 03/24/18 1335: APTT 55 H Assessment/Plan Assessment/Plan Assessment: 1. Acute heart failure with mildly decreased ejection fraction. LVEF 45-50% 2. Chronic kidney disease with acute exacerbation, improving-creatinine decreased to 2.1 today 3. Hypertension 4. Episode of atrial fibrillation, converted to sinus rhythm on amiodarone. Anticoagulated on warfarin 5. Positive troponin, possible NSTEMI vs. Type II [place]. No chest pain. Plan: * Continue amiodarone. Decrease dose to 200 mg daily after 1 week * Start Eliquis 2.5 mg po bid * Discontinue heparin with first dose of Eliquis * Continue aspirin * Discontinue Plavix when starting eliquis * Possible cardiac catheterization as outpatient once renal function is at baseline. The patient will follow up with me in the office in 2 weeks. Further plans after follow-up labs at that time. * Continue metoprolol * Continue atorvastatin Continue telemetry? No
--- NOTE | 2018-03-26 13:56 | Discharge Summary ---
Visit Information Visit Dates Admission Date: 03/20/18 Discharge Date: 03/26/18 Hospital Course Course Attending Physician: Lea Riojas MD Primary Care Physician: Kelly VAN,[facility] Hospital Course: 82-year-old gentleman with a pmhx of HTN on labetalol who presented [facility] for shortness of breath, found to be hypertensive with ONEIDA and pulmonary edema. Given Lasix in ED with mild improvement with only 300mL urine output. Found to have new onset afibrillation. Following issues were addressed: Acute decompensated systolic congestive heart failure: Acute decompensated CHF and elevated troponin secondary to atrial fibrillation with increased heart rate in the setting of recent CAD. ProBNP elevated 7530. Adequately diuresed till he appeared euvolemic but also noted to have ONEIDA. Echo showed LVEF estimated at 45 to 50% with mild global hypokinesis. New onset atrial fibrillation. Patient was initially in Icu for amiodarone and IV heparin drip. Converted to sinus rhythm on amiodarone. Once HR was well controlled he was switched to PO Amiodarone 400 mg BID and dose to be decreased to 200 mg daily after 1 week. Labetolol was discontinue and Metoprolol 25 mg BID was started. He was transitioned from IV heparin to renally dosed PO eliquis 2.5mg BID. Possible NSTEMI vs. Type II [place] Trops peaked to 2.02. Remained asymptomatic. He will possible have cardiac catheterization as outpatient once his renal function is at baseline. Will need to follow up with Dr. Serna in the office in 2 weeks. Acute on chronic kidney injury. His baseline is around 1.9 peaked to 2.4, on discharge his creatinine was 2.1. Diuretics, ACEI/ARB/nephrotoxins were avoided. Hypertension. Was started on amlodipine and hydralazine. Holding off any ACEI and ARB due to ONEIDA on CKD. Complications: none Allergies: Coded Allergies: No Known Allergies (02/20/18) Disposition Summary Disposition Principal Diagnosis: Acute heart failure Additional Diagnosis: NSTEMI vs Type II [place] Acute heart failure with mildly decreased ejection fraction. LVEF 45-50% Acute on Chronic kidney disease Hypertension Discharge Disposition: SNF Discharge Instructions General Discharge Information Code Status: Full Code Patient's Diet: heart healthy Patient's Activity: as tolerated Follow-Up Instructions/Appts: follow up with PCP within a week after discharge. follow up with tube tester within a week after discharge. Possible cardiac catheterization as an outpatient once renal function is back to baseline. Medications at Discharge Discharge Medications: Stop taking the following medications: Labetalol HCl (Labetalol HCl) 300 MG TABLET ORAL TWICE DAILY Qty = 60 Prednisone (Prednisone) 10 MG TABLET ORAL DAILY Continue taking these medications: Promethazine/Dextromethorphan (Promethazine-Dm Syrup) 6.25 MG-15 MG/5 ML SYRUP 1 Teaspoonful ORAL 4 times daily as needed as needed for COUGH Start taking the following new medications: Amiodarone (Cordarone) 200 MG TAB 0 ORAL DAILY Qty = 40 No Refills Instructions: PLEASE TAKE 2 TABS TWICE A DAY TILL 03/29/2018. START TAKING 1 TAB DAILY FROM 03/30/2018. Apixaban (Eliquis) 2.5 MG TABLET 1 Tablet ORAL TWICE DAILY Qty = 60 No Refills Atorvastatin Calcium (Atorvastatin Calcium) 40 MG TABLET 1 Tablet ORAL DAILY Qty = 30 No Refills Hydralazine HCl (Hydralazine HCl) 10 MG TABLET 2 Tablet ORAL TWICE DAILY Qty = 120 No Refills Metoprolol Tartrate (Metoprolol Tartrate) 25 MG TABLET 1 Tablet ORAL TWICE DAILY Qty = 60 No Refills Amlodipine Besylate (Amlodipine Besylate) 5 MG TABLET 1 Tablet ORAL DAILY Qty = 30 No Refills Aspirin (Aspirin*) 81 MG TAB.CHEW 1 Tablet ORAL DAILY Qty = 30 No Refills Copies To: Kelly VAN,Kendra; Jose West MD Attending MD Review Statement Documenting Attending: Lea Riojas MD Documenting Attending: Lea Riojas MD
[2018-03-26 14:21] VITALS: BP 120/56
[2018-03-26 16:21] VITALS: BP 120/56
== END 2018-03-26 19:00 | DRG 280 ==
LOC: ERH 06:25 → ERHI 08:19 → 1NO 08:19 → ENRESERV 09:16 → ENTRNSPT 09:54 → EDTRNSPTSTS 10:21 → EDTRNSPT 10:21 → 1NO 10:38 → CMPTRNSPT 10:45 → 1NO 03-22 10:48 → CRI 03-22 14:22 → ENTRNSPT 03-25 17:13 → EDTRNSPTSTS 03-25 17:29 → EDTRNSPT 03-25 17:29 → CMPTRNSPT 03-25 17:58 → 1NO 03-25 18:52
PROVIDERS: Emergency Medicine; Internal Medicine; Internal Medicine Cardiovascular Disease; Internal Medicine Pulmonary Disease
DX: I13.0 Hypertensive heart and chronic kidney disease with heart failure and stage 1 through stage 4 chronic kidney disease, or unspecified chronic kidney disease (principal); I50.21 Acute systolic (congestive) heart failure; I21.4 Non-ST elevation (NSTEMI) myocardial infarction; N17.9 Acute kidney failure, unspecified; I16.1 Hypertensive emergency; I48.92 Unspecified atrial flutter; I44.7 Left bundle-branch block, unspecified; E66.9 Obesity, unspecified; Z68.31 Body mass index [BMI] 31.0-31.9, adult; I12.9 Hypertensive chronic kidney disease with stage 1 through stage 4 chronic kidney disease, or unspecified chronic kidney disease; N18.9 Chronic kidney disease, unspecified; I48.91 Unspecified atrial fibrillation; Z79.52 Long term (current) use of systemic steroids; L40.9 Psoriasis, unspecified
CPT/HCPCS: 1NP; 1NSP; CCU; 36415; 36592; 71045; 82436; 93005; 93010; 93306; 96374; 97110-GO; 97116-GO; 97161-GP; 97164-GP; 99291; J0282; J1245; J1644; J1940; J3490; J7060